=== PATIENT | female | born 1935 | race Caucasian/White ===

== ENCOUNTER 2020-07-05 09:06 | Emergency (ER) | payer MEDICARE, SELFPAY ==
--- NOTE | ~2020-07-05 | XR_ITS ---
EXAMINATION: XR knee LT min 4V DATE: 07/05/2020 09:42 INDICATION: Left knee pain TECHNIQUE: Four views of the left knee were obtained. COMPARISON: None. FINDINGS: Alignment is normal. The bones are osteopenic which limits the sensitivity for fracture how ever none is seen. There is moderate tricompartment osteoarthritis. No joint effusion/synovitis. Joseph cified atherosclerosis is noted. IMPRESSION: 1. No acute osseous abnormality. Reviewed, dictated and finalized at location B.
[2020-07-05 09:20] VITALS: BP 132/66; PULSE 80; RESP 12; TEMP 36.6; O2SAT 100
--- NOTE | 2020-07-05 09:27 | ED.LOWEXIN ---
HPI - Extremity Injury (Lower) General Chief Complaint: Extremity Injury, Lower Stated Complaint: left knee injury Time Seen by Provider: 07/05/20 09:27 Source: patient, family and RN notes reviewed Mode of arrival: ambulatory Limitations: no limitations History of Present Illness HPI Narrative: 84-year-old female who presents to [facility] accompanied by daughter with complaints of fall last night with injury to her left knee.Patient is elderly and lives alone with family assistance. Patient states that she was putting her pajamas on and she fell onto her left knee with pain stated to the medial aspect of her knee. Patient states that her pain increases with ambulation and bending, no evidence of fluid noted to knee. Patient has long cardiac history with pacer/AICD, she denies any syncope or dizziness at time of fall, states that she just lost her balance. MD complaint: knee injury Onset (ago): day(s) (1) Injury: Left: knee Place: home Severity: moderate Severity scale (1-10): 5 Relieving factors: rest Exacerbating factors: weight bearing Context: fall Associated symptoms: able to partially bear weight Other symptoms: none Related Data Home Medications Medication Instructions Recorded Confirmed apixaban [Eliquis] mg 07/05/20 fenofibrate nanocrystallized mg PO 07/05/20 furosemide 07/05/20 hydralazine 07/05/20 insulin glargine [Lantus U-100 SUBCUT 07/05/20 Insulin] insulin lispro [Humalog U-100 07/05/20 Insulin] isosorbide mononitrate mg PO 07/05/20 isosorbide mononitrate mg PO 07/05/20 levothyroxine 07/05/20 pravastatin 07/05/20 spironolactone 07/05/20 Allergies Allergy/AdvReac Type Severity Reaction Status Date / Time Sulfa (Sulfonamide Allergy Mild Verified 02/28/17 08:51 Antibiotics) Review of Systems Review of Systems: Narrative: CONSTITUTIONAL: Denies fever, chills, or sweats. EYES: Denies visual changes, redness, or discharge. ENT: Denies rhinorrhea, congestion, sore throat, or otalgia. CARDIOVASCULAR: Denies chest pain, palpitations, or edema. RESPIRATORY: Denies cough or dyspnea. GASTROINTESTINAL: Denies abdominal pain, nausea, vomiting, or diarrhea. GENITOURINARY: Denies dysuria or hematuria. SKIN: Denies rash or itching. MUSCULOSKELETAL: Denies back pain,positive for left knee pain, or myalgia. NEUROLOGIC: Denies headache, numbness, or weakness. PSYCHIATRIC: Denies anxiety or depression. All systems reviewed & are unremarkable except as noted in HPI and below PMFSH Past Medical History Medical History (Updated 07/05/20 @ 10:15 by Tuyet Glaser NP) Afib CHF (congestive heart failure) Diabetes Histoplasmosis Hyperlipidemia Hypertension Hypothyroid Kidney disease, chronic, stage III (GFR 30-59 ml/min) Myocardial infarction Pneumonia Presence of combination internal cardiac defibrillator (ICD) and pacemaker Surgical History Surgical History (Updated 07/05/20 @ 10:15 by Tuyet Glaser NP) H/O dilation and curettage H/O: hysterectomy History of lung surgery Hx of appendectomy Family History Family History Sibling Diabetes mellitus Family history of cardiovascular disease Acute myocardial infarction, Onset Age: 71 Family history of malignant neoplasm of brain Family history of malignant neoplasm of breast in first degree relative Mother Family history of hypercholesterolemia Hypertension Family history of cardiovascular disease Father Hypertension Family history of cardiovascular disease Family history of malignant neoplasm Grandparent Hypertension Family history of cardiovascular disease Social History Social History (Updated 07/05/20 @ 10:00 by Tuyet Glaser NP) Smoking status: Never smoker Alcohol intake: never Substance use: never Living arrangements: alone Occupation/Education: retired Gender identity (if verbalized by the patient): Female Comments
== END 2020-07-05 10:20 | disposition home or self-care (01) ==
PROVIDERS: Emergency Provider Registered Nurse; PCP Family Medicine
DX: M25.562 Pain in left knee (principal); I48.91 Unspecified atrial fibrillation; I13.0 Hypertensive heart and chronic kidney disease with heart failure and stage 1 through stage 4 chronic kidney disease, or unspecified chronic kidney disease; E11.22 Type 2 diabetes mellitus with diabetic chronic kidney disease; N18.3 Chronic kidney disease, stage 3 (moderate); I50.9 Heart failure, unspecified; E78.5 Hyperlipidemia, unspecified; E03.9 Hypothyroidism, unspecified; I25.2 Old myocardial infarction; Z95.810 Presence of automatic (implantable) cardiac defibrillator
CPT/HCPCS: 73564; 99213; G0463

== ENCOUNTER 2022-08-02 12:36 | Emergency (ER) | payer MEDICARE, MEDICAID, SELFPAY ==
--- NOTE | ~2022-08-02 | XR_ITS ---
EXAMINATION: XR knee LT min 4V DATE: 08/02/2022 13:15 INDICATION: Left knee injury and swelling. TECHNIQUE: 4 views of left knee were obtained. COMPARISON: Left knee radiographs 07/05/2020 FINDINGS: Bone alignment is normal. No fracture. There is diffuse osteopenia. There is moderate osteo arthritis of medial compartment and mild osteoarthritis of lateral and patellofemoral compartments. T here is an enthesophyte at the proximal attachment of medial collateral ligament. There is a small kn ee joint effusion. IMPRESSION: 1. Moderate left knee osteoarthritis. 2. Small left knee joint effusion. Reviewed, dictated and finalized at location A.
--- NOTE | 2022-08-02 12:50 | ED.LOWEXIN ---
HPI - Extremity Injury (Lower) General Chief Complaint: Extremity Problem,Nontraumatic Stated Complaint: Left Knee Pain Time Seen by Provider: 08/02/22 13:14 Source: patient, family (daughter), RN notes reviewed and old records reviewed Mode of arrival: ambulatory Limitations: no limitations History of Present Illness HPI Narrative: 86-year-old female presents to the [facility] with complaints of left knee pain since Saturday. Daughter states that she was at the granddaughter's house in [place]. Got up in middle the night and bumped her knee they think on a wall. Small amount of bruising noted to the medial aspect. Had been given Tylenol. Daughter states that she was evaluated by her chiropractor for chronic back pain, sciatica. States that he did take a picture of the knee and did not see any abnormality. Related Data Home Medications Medication Instructions Recorded Confirmed apixaban 2.5 mg tablet (Eliquis) 2.5 mg PO DAILY 07/05/20 fenofibrate nanocrystallized 145 145 mg PO DAILY 07/05/20 mg tablet furosemide 40 mg tablet 40 mg PO DAILY 07/05/20 hydralazine 50 mg tablet 50 mg PO DAILY 07/05/20 insulin glargine 100 unit/mL 1 unit subcut DIRECTED 07/05/20 subcutaneous solution (Lantus U-100 Insulin) insulin lispro 100 unit/mL 1 unit subcut DIRECTED 07/05/20 subcutaneous solution (Humalog U-100 Insulin) levothyroxine 112 mcg tablet 112 mcg PO DAILY 07/05/20 pravastatin 40 mg tablet 40 mg PO DAILY 07/05/20 spironolactone 25 mg tablet 25 mg PO DAILY 07/05/20 Allergies Allergy/AdvReac Type Severity Reaction Status Date / Time Sulfa (Sulfonamide Allergy Mild Verified 02/28/17 08:51 Antibiotics) Review of Systems Review of Systems: All systems reviewed & are unremarkable except as noted in HPI and below Constitutional: Constitutional: Reports no additional constitutional complaints, Denies chills and Denies fever(s) Eyes: Eyes: Reports no additional eye complaints ENT: Reports system reviewed and no additional complaints, except as documented Cardiovascular: Cardiovascular: Reports no additional cardiovascular complaints Respiratory: Respiratory: Reports no additional respiratory complaints Gastrointestinal: Gastrointestinal: Reports no additional gastrointestinal complaints Musculoskeletal: Musculoskeletal: Reports as per HPI, Reports arthralgias (Medial left knee) and Denies joint swelling Integumentary/Breasts: Skin/Breast: Reports system reviewed and no additional complaints, except as docu Neurologic: Reports system reviewed and no additional complaints, except as documented Psychiatric: Psychiatric: Reports no additional psychiatric complaints Allergic/Immunologic: Allergic/Immunologic: Reports no additional allergic/immunologic complaints [facility] Past Medical History Medical History Afib CHF (congestive heart failure) Diabetes Histoplasmosis Hyperlipidemia Hypertension Hypothyroid Kidney disease, chronic, stage III (GFR 30-59 ml/min) Myocardial infarction Pneumonia Presence of combination internal cardiac defibrillator (ICD) and pacemaker Surgical History Surgical History H/O dilation and curettage H/O: hysterectomy History of lung surgery Hx of appendectomy Family History Family History Sibling Diabetes mellitus Family history of cardiovascular disease Acute myocardial infarction, Onset Age: 71 Family history of malignant neoplasm of brain Family history of malignant neoplasm of breast in first degree relative Mother Family history of hypercholesterolemia Hypertension Family history of cardiovascular disease Father Hypertension Family history of cardiovascular disease Family history of malignant neoplasm Grandparent Hypertension Family history of cardiovascular disease
[2022-08-02 12:54] VITALS: BP 95/75; PULSE 82; RESP 18; TEMP 36.1; O2SAT 100
== END 2022-08-02 13:25 | disposition home or self-care (01) ==
PROVIDERS: Emergency Provider Nurse Practitioner
DX: S80.02XA Contusion of left knee, initial encounter (principal); W22.09XA Striking against other stationary object, initial encounter; M17.12 Unilateral primary osteoarthritis, left knee; M25.462 Effusion, left knee; I48.91 Unspecified atrial fibrillation; E11.9 Type 2 diabetes mellitus without complications; Z79.4 Long term (current) use of insulin; E78.5 Hyperlipidemia, unspecified; E03.9 Hypothyroidism, unspecified; I25.2 Old myocardial infarction; I12.9 Hypertensive chronic kidney disease with stage 1 through stage 4 chronic kidney disease, or unspecified chronic kidney disease; N18.30 Chronic kidney disease, stage 3 unspecified; Z95.810 Presence of automatic (implantable) cardiac defibrillator
CPT/HCPCS: 73564; 99213; G0463

== ENCOUNTER 2022-09-10 16:15 | Emergency (ER) | payer MEDICARE, MEDICAID, SELFPAY ==
--- NOTE | ~2022-09-10 | XR_ITS ---
EXAMINATION: XR chest 2V DATE: 09/10/2022 18:58 INDICATION: Abdominal pain TECHNIQUE: AP and lateral views of the chest are obtained. COMPARISON: 03/01/2017 FINDINGS: Cardiomegaly is noted. There is mild atelectasis of the lung bases. A triple lead cardiac p acemaker of the left chest wall ends with leads in expected locations. No pleural effusion or pneumot horax. There is moderate thoracic spondylosis. IMPRESSION: 1. Cardiomegaly. Reviewed, dictated and finalized at location F. N PACKER IMPRESSION: 1. Cardiomegaly.
--- NOTE | ~2022-09-10 | CT_ITS ---
EXAMINATION: CT abdomen pelvis w con INDICATION: Abdominal pain, nausea and diarrhea TECHNIQUE: Computed tomographic images of the abdomen and pelvis were obtained after the administrati on of 100 cc of Omnipaque 350 intravenous contrast. The dose-length product (DLP) was 368.34 mGy-cm. Automated exposure control and iterative reconstruction technique were employed. COMPARISON: None available FINDINGS: There is mild atelectasis of the visualized lung bases. Cardiomegaly is noted. The liver is diffusely low in attenuation when compared with the spleen, consistent with hepatic steatosis. Punct ate calcifications in an otherwise normal spleen likely represent healed granulomatous disease. Stone s are present in the nondistended gallbladder. There is a small sliding hiatal hernia. There is a 12 mm cystic lesion in the body of the pancreas. There are bilateral adrenal masses which measure up to 1.2 cm on the left. 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 There is a 6 mm stone in the left renal pelvis which is mildly distended. No pathologically enlarged abdominal or pelvic lymp h nodes are identified. There is no free intraperitoneal gas or evidence of bowel obstruction. There is a right inguinal hernia containing fat. There is severe lumbar spondylosis. There is moderate oste oarthritis of the hips. IMPRESSION: 1. 6 mm stone in the left renal pelvis. 2. Cholelithiasis without additional findings of cholecystitis. 3. Cardiomegaly. 4. 12 mm cystic lesion in the body of the pancreas. The differential diagnosis includes pseudocyst, i ntraductal papillary mucinous neoplasm (IPMN), mucinous cystic neoplasm (MCN), and the less common se shelby cystadenoma and neuroendocrine tumor. Correlate for history of pancreatitis. Follow-up pancreas protocol CT or MRI in two years is recommended. Reviewed, dictated and finalized at location F. OARDING TEACHER IMPRESSION: 1. 6 mm stone in the left renal pelvis. 2. Cholelithiasis without additional findings of cholecystitis. 3. Cardiomegaly. 4. 12 mm cystic lesion in the body of the pancreas. The differential diagnosis includes pseudocyst, intraductal papillary mucinous neoplasm (IPMN), mucinous c ystic neoplasm (MCN), and the less common serous cystadenoma and neuroendocrine tumor. Correlate for history of pancreatitis. Follow-up pancreas protocol CT o r MRI in two years is recommended.
[2022-09-10 16:16] VITALS: BP 135/80; PULSE 78; RESP 18; TEMP 36.3; O2SAT 100
[2022-09-10 16:40] LABS: Basophils Absolute Auto 0.1 K/mm3 (0.0-0.1); Basophils Percent Auto 0.9 % (0.2-1.2); Eosinophils Absolute Auto 0.1 K/mm3 (0-0.3); Eosinophils Percent Auto 1.6 % (0-4.4); Hemoglobin 14.3 g/dL (12.0-15.0); Immature Granulocyte Absolute 0.03 K/mm3 (0.00-0.031); Immature Granulocyte Percent A 0.5 % (0-0.5); Lymphocytes Absolute Auto 1.67 K/mm3 (0.9-3.2); Lymphocytes Percent Auto 28.8 % (18.3-44.2); Mean Corpuscular HGB Conc 32.5 g/dl (32-36); Mean Corpuscular Hemoglobin 29.4 pg (26-34); Mean Corpuscular Volume 90.5 fl (80-100); Mean Platelet Volume 11.3 fl (7.4-10.4); Monocytes Absolute Auto 0.5 K/mm3 (0.1-0.6); Monocytes Percent Auto 8.6 % (2.6-8.5); Neutrophils Absolute Auto 3.5 K/mm3 (1.3-6.7); Neutrophils Percent Auto 59.6 % (45.5-73.1); Platelet Count Result 199 k/mm3 (150-375); Red Blood Count 4.86 M/mm3 (4.2-5.4); Red Cell Distribution Width 13.5 % (11.5-14.5); White Blood Count 5.8 K/mm3 (4.5-10.0)
[2022-09-10 16:54] LABS: Alanine Aminotransferase 16 U/L (6-35); Albumin Level 4.2 g/dL (3.5-5.1); Alkaline Phosphatase 54 U/L (38-126); Anion Gap 7 mmol/L (8-16); Aspartate Amino Transferase 23 U/L (14-36); Bilirubin,Total 0.7 mg/dL (0.2-1.3); Blood Urea Nitrogen 29 mg/dL (7-17); Carbon Dioxide 30 mmol/L (22-30); Chloride 99 mmol/L (98-107); Estimated CRCL calculation 24 ml/min; Estimated Glomerular Filt Rate 42; Glucose 223 mg/dL (65-110); Lipase 102 U/L (23-300); Potassium 4.3 mmol/L (3.4-5.0); Sodium 136 mmol/L (137-145)
--- NOTE | 2022-09-10 18:22 | ED.ABDPAIN ---
HPI - Abdominal Pain General Chief Complaint: Abdominal Pain Stated Complaint: abd pain Time Seen by Provider: 09/10/22 18:06 Source: patient Mode of arrival: ambulatory History of Present Illness HPI narrative: 86-year-old female with history of CHF, [place], renal failure presents today after seeing her primary care physician. Patient states she was at her chiropractor today for a visit when they instructed her that her pain was not in her normal area and that she needed to see her primary care physician. Patient did see her primary care physician today who instructed her to come into the ER. Patient arrives today with complaints of abdominal distention. Patient denies any pain unless palpation. Patient's daughter is at bedside who currently lives with her. Did note diarrhea over the last 2 days. Denies fever, body aches, chills. She does believe that the abdomen is more distended than normal. Patient denies any pain but on exam guarding and pain noted to right upper right lower and left lower quadrants. Patient's abdomen is distended. With fluid wave noted Related Data Home Medications Medication Instructions Recorded Confirmed apixaban 2.5 mg tablet (Eliquis) 2.5 mg PO DAILY 07/05/20 fenofibrate nanocrystallized 145 145 mg PO DAILY 07/05/20 mg tablet furosemide 40 mg tablet 40 mg PO DAILY 07/05/20 insulin glargine 100 unit/mL 1 unit subcut DIRECTED 07/05/20 subcutaneous solution (Lantus U-100 Insulin) insulin lispro 100 unit/mL 1 unit subcut DIRECTED 07/05/20 subcutaneous solution (Humalog U-100 Insulin) levothyroxine 112 mcg tablet 112 mcg PO DAILY 07/05/20 pravastatin 40 mg tablet 40 mg PO DAILY 07/05/20 spironolactone 25 mg tablet 25 mg PO DAILY 07/05/20 Allergies Allergy/AdvReac Type Severity Reaction Status Date / Time Sulfa (Sulfonamide Allergy Mild Unknown Verified 08/31/22 16:45 Antibiotics) Review of Systems Review of Systems: CONSTITUTIONAL: Denies fever, chills, or sweats. EYES: Denies visual changes, redness, or discharge. ENT: Denies rhinorrhea, congestion, sore throat, or otalgia. CARDIOVASCULAR: Denies chest pain, palpitations, or edema. RESPIRATORY: Denies cough or dyspnea. GASTROINTESTINAL: Diarrhea last 2 days none today, nausea, abdominal pain on palpation.Denies nausea. GENITOURINARY: Denies dysuria or hematuria. SKIN: Denies rash or itching. MUSCULOSKELETAL: Denies back pain, joint pain, or myalgia. [facility] Past Medical History Medical History Afib CHF (congestive heart failure) Diabetes Histoplasmosis Hyperlipidemia Hypertension Hypothyroid Kidney disease, chronic, stage III (GFR 30-59 ml/min) Myocardial infarction Pneumonia Presence of combination internal cardiac defibrillator (ICD) and pacemaker Surgical History Surgical History H/O dilation and curettage H/O: hysterectomy History of lung surgery Hx of appendectomy Family History Family History Sibling Diabetes mellitus Family history of cardiovascular disease Acute myocardial infarction, Onset Age: 71 Family history of malignant neoplasm of brain Family history of malignant neoplasm of breast in first degree relative Mother Family history of hypercholesterolemia Hypertension Family history of cardiovascular disease Father Hypertension Family history of cardiovascular disease Family history of malignant neoplasm Grandparent Hypertension Family history of cardiovascular disease Social History Social History Smoking status: Never smoker Alcohol intake: never Substance use: never Lack of Transportation: No Lack of Food: Never True Current Housing: I Have Housing Concerned About Future Housing: No Difficulty Paying Gas/Electric Bills: No Difficult
[2022-09-10 18:41] VITALS: O2SAT 99
[2022-09-10 18:51] LABS: Appearance Urine Clear (Clear); Bilirubin Urine Negative (Negative); Blood Urine Negative (Negative); Color Urine Yellow (Yellow); Glucose Urine UA Negative (Negative); Ketones Urine Negative (Negative); Leukocyte Esterase Ur Negative LEU/UL (Negative); Nitrate Urine Negative (Negative); Protein Urine Negative (Negative); Urobilinogen Urine 0.2 mg/dL (<2.0)
[2022-09-10 18:54] LABS: Add Urine Microscopic? NO
[2022-09-10 19:08] LABS: NT Pro B Type Natriuretic Pept 2860 pg/mL (5-100)
[2022-09-10 19:10] VITALS: O2SAT 99
[2022-09-10 19:11] VITALS: BP 132/110; O2SAT 100
[2022-09-10 19:20] VITALS: O2SAT 99
[2022-09-10 19:45] LABS: INR 1.4; Prothrombin Time 16.3 Seconds (11.1-14.7)
[2022-09-10 20:01] VITALS: BP 129/93; PULSE 85; RESP 16; O2SAT 99
== END 2022-09-10 21:03 | disposition home or self-care (01) ==
PROVIDERS: Emergency Medicine; Emergency Provider Nurse Practitioner Family; PCP Family Medicine
DX: I13.0 Hypertensive heart and chronic kidney disease with heart failure and stage 1 through stage 4 chronic kidney disease, or unspecified chronic kidney disease (principal); N18.30 Chronic kidney disease, stage 3 unspecified; N20.0 Calculus of kidney; I50.9 Heart failure, unspecified; I25.2 Old myocardial infarction; I48.91 Unspecified atrial fibrillation; E78.5 Hyperlipidemia, unspecified; E03.9 Hypothyroidism, unspecified; Z90.710 Acquired absence of both cervix and uterus; Z87.01 Personal history of pneumonia (recurrent); Z79.01 Long term (current) use of anticoagulants; Z79.4 Long term (current) use of insulin; I51.7 Cardiomegaly; K80.20 Calculus of gallbladder without cholecystitis without obstruction; K86.9 Disease of pancreas, unspecified
CPT/HCPCS: 36415; 71046; 74177; 80053; 81003; 83690; 83880; 85025; 85610; 99284; Q9967

== ENCOUNTER 2022-10-01 15:47 | Outpatient (CLI) | payer MEDICARE, MEDICAID, SELFPAY ==
--- NOTE | ~2022-10-01 | XR_ITS ---
XR abdomen/kub 1V DATE: 10/01/2022 16:20 INDICATION: Left kidney stone. Pain and swelling. TECHNIQUE: 3 supine views of the abdomen COMPARISON: 09/10/2022 CT abdomen pelvis FINDINGS: There is prominent gas and fecal material within the redundant colon. No pneumatosis or int raperitoneal free air or venous gas is detected. No visceromegaly is evident. AICD and pacemaker leads overlie the heart. Osteopenia. Degenerative changes of the thoracic and lumbar spine. IMPRESSION: Prominent amount of gas and fecal material within the colon Reviewed, dictated and finalized at Location A. Reviewed, dictated and finalized at location B. MAKER
== END 2022-10-01 15:48 | disposition home or self-care (01) ==
LOC: ANHIMG 15:51
PROVIDERS: PCP Family Medicine; Visit Provider Urology
DX: N20.0 Calculus of kidney (principal)
CPT/HCPCS: 74018

== ENCOUNTER 2022-10-11 00:30 | Day surgery (SDC) | payer MEDICARE, MEDICAID, SELFPAY ==
--- NOTE | 2022-10-04 12:24 | PC.NURSE ---
Report to the Outpatient Waiting Room, entrance under the green pavilion located off [facility], at time __0630 on date 10/11/22 . Planned Procedure Time: __829 . Time changes happen often and if your time is changed the preop area will call you the afternoon before. - You and your visitor will be asked to self-screen and do not enter if you have any COVID symptoms. - Only one visitor is requested with a max of two and NO children visitors are allowed at this time. - The patient visitor may be requested to leave or wait in car when not with patient due to distancing restrictions. - A mask is optional within the hospital. Patients may have clear liquids (water, carbonated beverages, clear teas, apple juice) until 3 hours prior to surgery with a maximum of 20 ounces. - No food from midnight until time of surgery - Infants may have breast milk until 4 hours before surgery, formula 6 hours prior to surgery. - Children will be allowed to drink immediately following surgery. If applicable, please bring a bottle or sippy cup to assist with drinking. Juice, water, soda, and popsicles are readily available. For infants on formula, please bring formula the day of surgery. Pacifiers are allowed. Take the following medications with a SIP of water the morning of surgery: ____LEVOTHYROXINE Medications to discontinue per physician DAUGHTER NATHAN STATES DOESN'T NEED TO HOLD ELIQUIS _PER DR LUIS. ALL VIT/SUPP 3 DAYS PRE OP Date to take last dose__10/07/22 Please no make-up, nail czech, hairspray, perfume, deodorant, or body powder the day of surgery. No jewelry (including any body piercings) or valuables the day of surgery, leave them at home. Please take a shower or bath the night before, or the morning of, surgery with an antibacterial soap. Wear comfortable, loose fitting clothing. Children are encouraged to wear pajamas. - Jewelry must be removed prior to entering the operating room. Rings and piercings that are not removed may be cut off. - The hospital will not accept responsibility for valuables. - Please leave all valuables, including medications, at home the day of surgery. If you are going home after surgery, a licensed coach tour driver must drive you home. - NO public transportation without another adult if you receive anesthesia. - We recommend that an adult stay with you for 24 hours following discharge. - We also recommend that you do not drive, make important decision, drink alcoholic beverages, or take any drugs that were not prescribed by your health care provider for at least 24 hours after your discharge time. For Pediatric surgeries, we recommend two adults accompany the child home. Follow any additional instructions given to you from your surgeon. If you or anyone in your household have experienced Covid symptoms in the past week, please notify your surgeon or the nurse liaison at the phone number below for possible testing. Telephone instructions given to ___PT'S DAUGHTER NATHAN and asked if any additional questions and then verbalized understanding. Patient advised to call surgeon office or pre surgery nurse liaison [phone] if any additional questions.
[2022-10-04 12:46] VITALS: BMI 22.8
[2022-10-11] VITALS (12 sets, daily range): BP systolic 147–182; BP diastolic 84–104; PULSE 79–83; RESP 13–20; TEMP 36.4–37.1; O2SAT 95–100
--- NOTE | ~2022-10-11 | XR_ITS ---
EXAMINATION: XR retrograde pyelo w/stent LT DATE: 10/11/2022 8:40 EDUCATION AND TRAINING COORDINATOR INDICATION: RETRO/STENT . TECHNIQUE: 5 fluoroscopic images of the left abdomen were obtained during retrograde pyelogram perfor med by the surgeon. I was not present in the operating room. Fluoroscopy exposure time was 131.5 seco nds. COMPARISON: None FINDINGS: Images demonstrate wire placement followed by stent deployment in the left ureter, with appropriate s tent positioning. There is moderate dilatation of the left renal collecting system.. IMPRESSION: Fluoroscopic documentation of left ureteral stent placement. Please refer to the operative note for c omplete procedural details . Reviewed, dictated and finalized at location [] ATION AND TRAINING COORDINATOR IMPRESSION: Fluoroscopic documentation of left ureteral stent placement. Please refer to th e operative note for complete procedural details .
--- NOTE | 2022-10-11 06:32 | WPDHPUPDATE1 ---
History and Physical Update Update Date/Time: 10/11/22 06:32 History and Physical has been reviewed, including an updated exam of the patient. There are NO changes in the patient's condition. Risks, benefits, and alternatives have been discussed and questions answered. Patient agrees to proceed with procedure.
--- NOTE | 2022-10-11 07:24 | ECG_ITS ---
Measurements Intervals [place] Rate: 81 P: TN: 0 QRS: -77 QRSD: 155 T: 40 QT: 426 QTc: 496 Interpretive Statements ELECTRONIC VENTRICULAR PACEMAKER PROBABLE UNDERLYING ATRIAL FIBRILLATION ABNORMAL RHYTHM ECG NO PREVIOUS ECG AVAILABLE FOR COMPARISON Electronically Signed On 10-11-2022 11:45:13 EMAIL ENGINEER by Iveth Razo M.D.
--- NOTE | 2022-10-11 08:06 | WPDANESEPPF ---
Anes - Initial Pre Proc Eval Procedure: Operation Date: 10/11/22 08:30 Proposed Procedures p Cystoscopy, Left Ureteroscopy with Holmium Laser Lithotripsy, Possible Left Retrograde Pyelogram, Possible Left Stone Extraction, Possible Left Stent Placement - Kahlil Ryan MD Date/Time: 10/11/22 08:06 Surgeon: Kahlil Ryan MD Pre Op Diagnosis: left renal kidney stone Patient Data Age: 86 Gender: F Height: 1.63 m Weight: 57.3 kg Last Vital Signs Temp 36.4 C L 10/11/22 06:59 Pulse 83 10/11/22 06:59 Resp 16 10/11/22 06:59 BP 147/84 H 10/11/22 06:59 Pulse Ox 97 10/11/22 06:59 O2 Del Method Room Air 10/11/22 06:59 Allergies Allergy/AdvReac Type Severity Reaction Status Date / Time Sulfa (Sulfonamide Allergy Mild Unknown Verified 10/11/22 06:50 Antibiotics) adhesive tape AdvReac Redness of Verified 10/11/22 06:50 Skin Home Medications Medication Instructions Recorded Confirmed Type apixaban 2.5 mg tablet (Eliquis) 2.5 mg PO DAILY 07/05/20 10/11/22 History fenofibrate nanocrystallized 145 145 mg PO DAILY 07/05/20 10/11/22 History mg tablet furosemide 40 mg tablet 40 mg PO DAILY 07/05/20 10/11/22 History insulin glargine 100 unit/mL 1 unit subcut DIRECTED 07/05/20 10/11/22 History subcutaneous solution (Lantus U-100 Insulin) insulin lispro 100 unit/mL 1 unit subcut DIRECTED 07/05/20 10/11/22 History subcutaneous solution (Humalog U-100 Insulin) levothyroxine 112 mcg tablet 112 mcg PO DAILY 07/05/20 10/11/22 History pravastatin 40 mg tablet 40 mg PO DAILY 07/05/20 10/11/22 History spironolactone 25 mg tablet 25 mg PO DAILY 07/05/20 10/11/22 History cholecalciferol (vitamin D3) 50 50 mcg PO DAILY 10/04/22 10/11/22 History mcg (2,000 unit) tablet cyanocobalamin (vitamin B-12) 1,000 mcg MONTHLY 10/04/22 10/11/22 History 1,000 mcg/mL injection syringe Patient hx anesthesia problems: none Family hx anesthesia problems: none Results Review: All pre-operative results and documents have been reviewed as part of the pre-operative evaluation. [facility] Past Medical History Medical History Afib CHF (congestive heart failure) Diabetes Histoplasmosis Hyperlipidemia Hypertension Hypothyroid Kidney disease, chronic, stage III (GFR 30-59 ml/min) Myocardial infarction Pneumonia Presence of combination internal cardiac defibrillator (ICD) and pacemaker Surgical History Surgical History H/O dilation and curettage H/O: hysterectomy History of lung surgery Hx of appendectomy Family History Family History Sibling Diabetes mellitus Family history of cardiovascular disease Acute myocardial infarction, Onset Age: 71 Family history of malignant neoplasm of brain Family history of malignant neoplasm of breast in first degree relative Mother Family history of hypercholesterolemia Hypertension Family history of cardiovascular disease Father Hypertension Family history of cardiovascular disease Family history of malignant neoplasm Grandparent Hypertension Family history of cardiovascular disease Social History Social History Smoking status: Never smoker Alcohol intake: never Substance use: never Lack of Transportation: No Lack of Food: Never True Current Housing: I Have Housing Concerned About Future Housing: No Difficulty Paying Gas/Electric Bills: No Difficulty Paying for Meds: No Currently Unemployed: No Education: Decline to Answer Difficulty w/ Childcare or Family Care: No Living arrangements: with family Gender identity (if verbalized by the patient): Female Spiritual care concerns: No Anes - Eval Final PreProcedure Day of Procedure 10/11/22 08:06 Patient francisco
[2022-10-11 08:14] LABS: Glucose Point of Care 210 mg/dl (65-105)
[2022-10-11] MEDS: LACTATED RINGERS 1,000 ML 30 ML IV CONT (08:17)
[2022-10-11] MEDS: ceFAZolin 2 GM/D5W 50 ML 2 GM/50 ML BAG IVPB (08:19)
--- NOTE | 2022-10-11 09:15 | P.OP_ITS ---
Procedure Note - Detailed Date of Procedure 10/11/22 Pre-op Diagnosis left renal kidney stone Post-op Diagnosis Same Procedure Performed Cystoscopy, left ureteroscopy with laser lithotripsy, stone extraction, retrograde pyelogram and stent placement Surgeon Kahlil Ryan MD Anesthesia General Description of Procedure patient is brought to the operative suite where she has prepped draped in routine sterile fashion while in dorsal lithotomy position after the uneventful induction of general LMA anesthetic. Cystoscopy is undertaken with a 19 F rigid cystoscope. Her bladder was endoscopically normal without foreign body or neoplasm. Mucosa is without hyperemia. She has a single orthotopic ureteral o rifice with clear efflux bilaterally. 0.035 in glidewire was advanced to the left renal pelvis. The distal ureter was dilated with an 8 F 10 F dilator in the 12 14 F ureteral access sheath this placed. Ureteroscopy was undertaken with a 7.5 F flexible ureteral scope. The large stone in her proximal ureter pushed back into the kidney with irrigation. Using a 273 micron holmium laser stone is fractured into tiny pieces using a hard stone mode. These pieces were too small to grasp with a basket. I did place a 4.8 F double-J ureteral stent after performing a retrograde pyelogram through the ureteral scope. Scopes wire was removed and patient was taken recovery room good condition. Estimated Blood Loss 0 Urine Output 0 Drains Yes Packing No Pathology None sent Complications No immediate complications
[2022-10-11 09:34] LABS: Glucose Point of Care 191 mg/dl (65-105)
[2022-10-11] MEDS: ONDANSETRON INJ 4 MG/2 ML VIAL IV PUSH (10:11)
[2022-10-11] MEDS: diphenhydrAMINE HCl INJ 50 MG/ML VIAL 12.5 MG IV PUSH (10:38)
== END 2022-10-11 12:45 | disposition home or self-care (01) ==
PROVIDERS: PCP Family Medicine; Visit Provider Urology
PROC: (CPT 52352; principal; 2022-10-11 08:30)
DX: N20.0 Calculus of kidney (principal); I48.91 Unspecified atrial fibrillation; I13.0 Hypertensive heart and chronic kidney disease with heart failure and stage 1 through stage 4 chronic kidney disease, or unspecified chronic kidney disease; I50.9 Heart failure, unspecified; N18.30 Chronic kidney disease, stage 3 unspecified; I25.2 Old myocardial infarction; E11.22 Type 2 diabetes mellitus with diabetic chronic kidney disease; E78.5 Hyperlipidemia, unspecified; E03.9 Hypothyroidism, unspecified; Z95.810 Presence of automatic (implantable) cardiac defibrillator; Z79.4 Long term (current) use of insulin; Z79.01 Long term (current) use of anticoagulants
CPT/HCPCS: 52356; 74420; 82948; 93005; A9270; C1769; C1894; C2617; J0690; J1200; J2405; J2704; J3010; J7120

== ENCOUNTER 2023-03-31 13:33 | Emergency (ER) | payer MEDICARE, MEDICAID, SELFPAY ==
[2023-03-31] VITALS (29 sets, daily range): BP systolic 108–125; BP diastolic 67–89; PULSE 69–89; RESP 13–21; TEMP 36.3–36.4; O2SAT 94–100
--- NOTE | ~2023-03-31 | CT_ITS ---
CT head without contrast Indication: Altered mental status Technique: Serial scans were obtained through the brain without the administration of contrast. Dose reduction technique was used on this scan by utilizing automated exposure control and iterative recon struction technique. The dose-length product (DLP) was 681.00 mGy-cm. Findings: There is no evidence of intracranial hemorrhage, mass lesion, or acute infarct. The ventri cles and subarachnoid spaces are dilated, consistent with mild to moderate atrophy. Low attenuation regions are seen within the periventricular white matter bilaterally, likely representing changes fro m chronic microvascular ischemic disease. There is no evidence of edema, mass effect or midline shif t. The visualized paranasal sinuses and mastoid air cells are clear. Impression: No intracranial hemorrhage, mass, or acute infarct. Atrophy and chronic white matter changes, as above. Reviewed, dictated and finalized at location M. Impression: No intracranial hemorrhage, mass, or acute infarct. Atrophy and chronic white matter changes, as above.
--- NOTE | ~2023-03-31 | CT_ITS ---
Non-contrast CT scan of the Abdomen and Pelvis Clinical indication: Abdominal pain Technique: 2.5 mm axial scans were obtained through the abdomen and pelvis without intravenous or or al contrast. Dose reduction technique was used on this scan by utilizing automated exposure control a nd iterative reconstruction technique. The dose-length product (DLP) was 273.40 mGy-cm. COMPARISON: 09/10/2022 Findings: Images through the lung bases reveal moderate right pleural effusion with right basilar at electasis. Minimal left pleural effusion present.. Nonobstructing left renal stones measuring up to 6 mm. No right nephrolithiasis. No hydronephrosis or ureteral stones.. The liver, pancreas, and right adrenal gland appear normal. Numerous small layering gallstones and/or gallbladder sludge are present. Calcified splenic granulomas are present. Probable left adrenal nodu le, similar to prior exam. There are atherosclerotic calcifications of the aorta. There is no evidence of bowel obstruction. There is marked stool distention of the rectum, compatible with fecal impaction. Probable mild stercoral proctitis. There are multiple radiodense ovoid structu res within the stool in the distended rectum, which could reflect pills or other ingested foreign bod ies. Images through the pelvis were performed. There is no evidence of ascites or lymphadenopathy. Urinary bladder unremarkable. Impression: Fecal impaction and stercoral proctitis. Multiple radiodense ovoid structures in the stool within the rectum, which could reflect pills or oth er ingested material/foreign bodies. Correlate clinically. Cholelithiasis and/or gallbladder sludge. Left nephrolithiasis, nonobstructing. Moderate right pleural effusion and minimal left pleural effusion, with right basilar atelectasis. Reviewed, dictated and finalized at [facility]. Impression: Fecal impaction and stercoral proctitis. Multiple radiodense ovoid structures in the stool within the rectum, which coul d reflect pills or other ingested material/foreign bodies. Correlate clinically . Cholelithiasis and/or gallbladder sludge. Left nephrolithiasis, nonobstructing. Moderate right pleural effusion and minimal left pleural effusion, with right b asilar atelectasis.
--- NOTE | ~2023-03-31 | XR_ITS ---
Portable chest x-ray Comparison: 09/10/2022 Clinical History: Epigastric pain Findings: Small right pleural effusion is present. Left lung clear. Cardiomediastinal silhouette is stable, with pacemaker device. Bones and soft tissues are unremarkable. Impression: Small right pleural effusion. Pacemaker device. Reviewed, dictated and finalized at [facility]. Impression: Small right pleural effusion. Pacemaker device.
[2023-03-31 13:58] LABS: Glucose Point of Care 138 mg/dl (65-105)
--- NOTE | 2023-03-31 13:58 | ECG_ITS ---
Measurements Intervals [place] Rate: 80 P: SC: 0 QRS: -84 QRSD: 149 T: 17 QT: 441 QTc: 509 Interpretive Statements SINUS RHYTHM WITH ELECTRONIC VENTRICULAR PACEMAKER ATYPICAL ECG COMPARED TO ECG 10/11/2022 07:36:06 NO SIGNIFICANT CHANGES Electronically Signed On 04-01-2023 9:29:41 CDT by Dov Rivera M.D.
--- NOTE | 2023-03-31 14:00 | ED.GENADULT ---
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 She states patient has dementia she has been taking some fluids but has only been eating a little bit of yogurt over the last 8 days. She has not walked since being at home she has only been able to stand and turn. Daughter called the EMS when she tried to stand her up and she got weak and slumped over and the daughter could not get her blood pressure. EMS got a blood pressure 108/67. Patient complains of epigastric pain. Related Data Home Medications Medication Instructions Recorded Confirmed apixaban 2.5 mg tablet (Eliquis) 2.5 mg PO DAILY 07/05/20 03/31/23 fenofibrate nanocrystallized 145 145 mg PO DAILY 07/05/20 03/31/23 mg tablet furosemide 40 mg tablet 40 mg PO BID 07/05/20 03/31/23 insulin glargine 100 unit/mL 5 unit subcut DIRECTED 07/05/20 03/31/23 subcutaneous solution (Lantus U-100 Insulin) insulin lispro 100 unit/mL 50 unit subcut TIDWMEAL 07/05/20 03/31/23 subcutaneous solution (Humalog U-100 Insulin) pravastatin 40 mg tablet 40 mg PO DAILY 07/05/20 03/31/23 spironolactone 25 mg tablet 25 mg PO DAILY 07/05/20 03/31/23 cholecalciferol (vitamin D3) 50 50 mcg PO DAILY 10/04/22 03/31/23 mcg (2,000 unit) tablet cyanocobalamin (vitamin B-12) 1,000 mcg MONTHLY 10/04/22 03/31/23 1,000 mcg/mL injection syringe levothyroxine 100 mcg tablet 100 mcg PO QAM 01/25/23 03/31/23 omeprazole 20 mg capsule,delayed 20 mg PO DAILY 03/31/23 03/31/23 release Allergies Allergy/AdvReac Type Severity Reaction Status Date / Time Sulfa (Sulfonamide Allergy Mild Unknown Verified 03/31/23 14:00 Antibiotics) adhesive tape AdvReac Redness of Verified 03/31/23 14:01 Skin Review of Systems Constitutional: Constitutional: Denies chills, Reports fatigue, Denies fever(s) and Reports weakness Eyes: Eyes: Denies change in vision ENT: Reports dizziness, Denies epistaxis and Reports nasal congestion Cardiovascular: Cardiovascular: Reports chest pain Comments: Bruising the chest started yesterday or the day before per caregiver Respiratory: Respiratory: Reports cough and Denies dyspnea Gastrointestinal: Gastrointestinal: Reports abdominal pain, Denies constipation, Denies diarrhea and Denies vomiting Comments: decreased p.o. intake she is only taking yogurt and juice since being home over the last a day Genitourinary: Genitourinary: Denies hematuria and Reports urinary incontinence Musculoskeletal: Musculoskeletal: Denies muscle cramps Comments: sacral decubitus Integumentary/Breasts: Comments: breast or bruise Neurologic: Reports confusion, Reports dizziness and Reports syncope PMFSH Past Medical History Medical History Afib CHF (congestive heart failure) Diabetes Histoplasmosis Hyperlipidemia Hypertension Hypothyroid Kidney disease, chronic, stage III (GFR 30-59 ml/min) Myocardial infarction Pneumonia Presence of combination internal cardiac defibrillator (ICD) and pacemaker Surgical History Surgical History H/O dilation and curettage H/O: hysterectomy History of lung surgery Hx of appendectomy Family History Family History Sibling Diabetes mellitus Family history of cardiovascular disease Acute myocard
[2023-03-31] MEDS: ONDANSETRON INJ 4 MG/2 ML VIAL IV PUSH (14:41)
[2023-03-31] MEDS: KCL 20MEQ/0.9% SOD CHL 1,000 ML 100 ML IV CONT (14:42)
[2023-03-31 15:20] LABS: Hemoglobin 12.7 g/dL (11.7-13.8); Mean Corpuscular HGB Conc 32.6 g/dL (32.0-36.0); Mean Corpuscular Volume 86.1 fL (78.0-102.0); Mean Platelet Volume 11.2 fl (9.2-11.8); Platelet Count Result 244 K/mm3 (150-420); Red Blood Count 4.53 M/mm3 (4.20-5.40); Red Cell Distribution Width 17.4 % (11.6-14.4); White Blood Count 8.7 K/mm3 (4.8-10.8)
[2023-03-31 15:30] LABS: Bilirubin Urine 1+ (Negative); Blood Urine 3+ (Negative); Glucose Urine UA Negative (Negative); Ketones Urine Trace (Negative); Leukocyte Esterase Ur 3+ LEU/UL (Negative); Nitrate Urine Negative (Negative); Protein Urine 2+ (Negative); Specific Grav Ur >= 1.030 (1.010-1.020)
[2023-03-31 15:34] LABS: INR 1.7; Partial Thromboplastin Time 38.7 SEC (23.90-30.70); Prothrombin Time 17.7 Seconds (9.50-12.10)
[2023-03-31 15:35] LABS: Add Urine Microscopic? YES; Appearance Urine Turbid (Clear); Color Urine Amber (Yellow)
[2023-03-31 15:37] LABS: Alanine Aminotransferase 34 U/L (14-59); Albumin Level 2.5 g/dL (3.4-5.0); Alkaline Phosphatase 115 U/L (46-116); Anion Gap 9 mmol/L (8-16); Aspartate Amino Transferase 56 U/L (15-37); Bilirubin,Total 1.2 mg/dL (0.00-1.00); Blood Urea Nitrogen 17 mg/dL (7-18); Carbon Dioxide 26 mmol/L (21-32); Chloride 97 mmol/L (98-108); Estimated Glomerular Filt Rate 53; Glucose 147 mg/dL (70-99); Lipase 19 U/L (16-77); Magnesium 1.7 mg/dL (1.8-2.4); NT Pro B Type Natriuretic Pept 4934 pg/mL (0-450); Occult Blood Negative (Negative); Osmolality Calculated 278 mOsm/kg (285-295); Potassium 4.2 mmol/L (3.5-5.1); Sodium 132 mmol/L (136-145); Troponin I 26.7 ng/L (0.00-60.4)
[2023-03-31 15:40] LABS: Lactic Acid Reflex 2.7 mmol/L (0.4-2.0)
[2023-03-31 16:07] LABS: Bacteria Urine 4+ /hpf; RBC Urine >100 /hpf (0-2); WBC Clumps Urine Present /hpf
[2023-03-31 16:08] LABS: Amorphous Sediment Urine Heavy; WBC Urine >100 /hpf (0-3)
[2023-03-31 16:35] LABS: Influenza A QL RT-PCR Negative (Negative); Influenza B QL RT-PCR Negative (Negative); RSV RNA, RT-PCR Negative (Negative); SARS-CoV-2 RNA PCR Positive (Negative)
[2023-03-31 18:06] LABS: Reflex Lactic Acid Yes or No Add Lactic
[2023-03-31 19:52] LABS: Lactic Acid 2.2 mmol/L (0.4-2.0)
--- NOTE | 2023-04-07 12:35 | PC.NURSE ---
Final blood culture report: no growth after 5 days, no further action needed.
== END 2023-03-31 21:51 | disposition short-term general hospital (02) ==
PROVIDERS: Emergency Provider Emergency Medicine
DX: E86.0 Dehydration (principal); N39.0 Urinary tract infection, site not specified; K56.41 Fecal impaction; K62.89 Other specified diseases of anus and rectum; I48.91 Unspecified atrial fibrillation; I13.0 Hypertensive heart and chronic kidney disease with heart failure and stage 1 through stage 4 chronic kidney disease, or unspecified chronic kidney disease; I50.9 Heart failure, unspecified; N18.30 Chronic kidney disease, stage 3 unspecified; E11.22 Type 2 diabetes mellitus with diabetic chronic kidney disease; E78.5 Hyperlipidemia, unspecified; E03.9 Hypothyroidism, unspecified; I25.2 Old myocardial infarction; Z79.4 Long term (current) use of insulin; Z20.822 Contact with and (suspected) exposure to COVID-19
CPT/HCPCS: 36415; 70450; 71045; 74176; 80053; 81001; 82272; 82948; 83605; 83690; 83735; 83880; 84484; 85027; 85610; 85730; 87040; 87077; 87086; 87088; 87186; 87637; 93005; 96365; 96366; 96368; 96375; 99285; J0696; J2405; J3480

== ENCOUNTER 2023-03-31 22:44 | Inpatient (IN) | payer MEDICARE, MEDICAID, SELFPAY ==
--- NOTE | ~2023-03-31 | XR_ITS ---
Portable chest x-ray Comparison: 03/31/2023 Clinical History: Shortness of breath Findings: Small right pleural effusion is present. There is minimal haziness in the right lung as we ll. Left lung clear. Cardiomediastinal silhouette is stable, with pacemaker device. Bones and soft t issues are unremarkable. Impression: Small right pleural effusion with probable minimal right lung pulmonary edema or atelectatic change. Correlate clinically for pneumonia. Reviewed, dictated and finalized at location . Impression: Small right pleural effusion with probable minimal right lung pulmonary edema o r atelectatic change. Correlate clinically for pneumonia.
[2023-03-31 22:37] VITALS: BMI 17.6
--- NOTE | 2023-03-31 22:48 | ADMGEN ---
This patient, Selma Tovar, was admitted to IMU Room 231-01. Patient/family oriented to hospital policies and general routines including ID bracelet, bed and alarms, visiting hours, pain management, procedures, bathroom and other care routines, personal items, smoking policy, room service/diet, and visiting hours. Information on how to activate the Rapid Response Team has been discussed. Patient/Family are encouraged to report perceived risks to care and to ask questions if they do not understand what they are told or what they should do.
[2023-03-31 22:55] VITALS: BP 139/63; PULSE 81; RESP 16; TEMP 36.5; O2SAT 94
[2023-03-31 22:56] VITALS: BMI 17.6
--- NOTE | 2023-03-31 23:38 | PM.IMHP ---
H&P: HPI History of Present Illness Date/Time: 03/31/23 23:38 Chief Complaint: Generalized weakness Narrative: This is an 87-year-old female with past medical history significant for insulin-dependent diabetes mellitus, GERD, dyslipidemia, atrial fibrillation, congestive heart failure, chronic kidney disease, AICD. Patient with recent hip fracture status post replacement, with protracted post up course, paralytic ileus, prolonged hospitalization at [facility] 20 days, discharged to rehabilitation had a brief stay at [facility] and currently living with daughter. Was brought to outside facility emergency room [facility] for evaluation due to generalized weakness patient is only able to stand and turn has not been able to walk very debilitated, and weight loss. Preliminary workup was significant for elevated D-dimer, elevated troponin, urinalysis is numerous WBCs present, elevated lactic acid. A CT of abdomen and pelvis was reported as: Non-contrast CT scan of the Abdomen and Pelvis Clinical indication: Abdominal pain Technique:? 2.5 mm axial scans were obtained through the abdomen and pelvis without intravenous or oral contrast. Dose reduction technique was used on this scan by utilizing automated exposure control and iterative reconstruction technique. The dose-length product (DLP) was 273.40 mGy-cm. COMPARISON: 09/10/2022 Findings:? Images through the lung bases reveal moderate right pleural effusion with right basilar atelectasis. Minimal left pleural effusion present.. Nonobstructing left renal stones measuring up to 6 mm. No right nephrolithiasis. No hydronephrosis or ureteral stones.. The liver, pancreas, and right adrenal gland appear normal. Numerous small layering gallstones and/or gallbladder sludge are present. Calcified splenic granulomas are present. Probable left adrenal nodule, similar to prior exam. There are atherosclerotic calcifications of the aorta. ? There is no evidence of bowel obstruction. There is marked stool distention of the rectum, compatible with fecal impaction. Probable mild stercoral proctitis. There are multiple radiodense ovoid structures within the stool in the distended rectum, which could reflect pills or other ingested foreign bodies. Images through the pelvis were performed. There is no evidence of ascites or lymphadenopathy. Urinary bladder unremarkable. Impression: Fecal impaction and stercoral proctitis. Multiple radiodense ovoid structures in the stool within the rectum, which could reflect pills or other ingested material/foreign bodies. Correlate clinically. Cholelithiasis and/or gallbladder sludge. Left nephrolithiasis, nonobstructing. Moderate right pleural effusion and minimal left pleural effusion, with right basilar atelectasis. Head CT was reported as: CT head without contrast Indication: Altered mental status Technique: Serial scans were obtained through the brain without the administration of contrast. Dose reduction technique was used on this scan by utilizing automated exposure control and iterative reconstruction technique. The dose-length product (DLP) was 681.00 mGy-cm. Findings: There is no evidence of intracranial hemorrhage, mass lesion, or acute infarct.? The ventricles and subarachnoid spaces are dilated, consistent with mild to moderate atrophy.? Low attenuation regions are seen within the periventricular white matter bilaterally, likely representing changes from chronic microvascular ischemic disease. There is no evidence of edema,? mass effect or midline shift.? The visualized paranasal sinuses and mastoid air cells are clear. Impression: No intracranial hemorrhage, mass, or acute infarct. Atrophy and chronic white matter changes, as above. A chest x-ray was reported as: Portable chest x-ray Comparison: 09/10/2022 Clinical History: Epigastric pain Findings:? Small right pleural effusion is present. Left lung clear.? Cardiome
[2023-04-01] VITALS (14 sets, daily range): BP systolic 112–141; BP diastolic 53–75; PULSE 80–84; RESP 16–18; TEMP 36.4–36.8; O2SAT 95–97; BMI 17.6
[2023-04-01 01:11] LABS: Glucose Point of Care 127 mg/dl (65-105)
[2023-04-01] MEDS: INSULIN GLARGINE (*BKC) 100 UNITS/ML SUB-Q (01:35)
[2023-04-01] MEDS: SODIUM CHLORIDE 0.9% IV 1,000 ML 65 ML IV CONT ×2 (01:35→15:52)
[2023-04-01] MEDS: MIRTAZAPINE 15 MG TABLET PO ×2 (01:36→20:16)
[2023-04-01] MEDS: APIXABAN 2.5 MG TABLET PO ×3 (01:36→20:16)
[2023-04-01 02:08] LABS: Lactic Acid Reflex 1.9 mmol/L (0.7-2.0)
[2023-04-01 04:59] LABS: Basophils Percent Auto 0.5 % (0.2-1.2); Eosinophils Percent Auto 0.3 % (0-4.4); Hematocrit 35.7 % (37.0-47.0); Hemoglobin 11.8 g/dL (12.0-15.0); Immature Granulocyte Percent A 1.3 % (0-0.5); Lymphocytes Absolute Auto 2.39 K/mm3 (0.9-3.2); Lymphocytes Percent Auto 32.2 % (18.3-44.2); Mean Corpuscular HGB Conc 33.1 g/dl (32-36); Mean Corpuscular Hemoglobin 28.1 pg (26-34); Monocytes Absolute Auto 0.7 K/mm3 (0.1-0.6); Monocytes Percent Auto 9.6 % (2.6-8.5); Neutrophils Absolute Auto 4.2 K/mm3 (1.3-6.7); Neutrophils Percent Auto 56.1 % (45.5-73.1); Nucleated Red Blood Cells Absolute Auto 0.1 K/mm3 (0.0-0.012); Nucleated Red Blood Cells Perc 0.9 % (0.0-0.2); Platelet Count Result 214 k/mm3 (150-375); Red Cell Distribution Width 17.6 % (11.5-14.5); White Blood Count 7.4 K/mm3 (4.5-10.0)
[2023-04-01 05:12] LABS: Anion Gap 4 mmol/L (8-16); Blood Urea Nitrogen 19 mg/dL (7-17); Calcium 8.6 mg/dL (8.4-10.2); Carbon Dioxide 29 mmol/L (22-30); Chloride 98 mmol/L (98-107); Estimated CRCL calculation 28 ml/min; Estimated Glomerular Filt Rate 59; Glucose 114 mg/dL (65-110); Magnesium 1.9 mg/dL (1.6-2.3); Phosphorus 3.1 mg/dL (2.5-4.5); Sodium 131 mmol/L (137-145)
[2023-04-01] MEDS: LEVOTHYROXINE SODIUM 100 MCG TABLET PO (06:25)
--- NOTE | 2023-04-01 08:49 | PM.IMPN ---
Progress Note: A&P Assessment and Plan (1) Sepsis: Code(s): A41.9 - Sepsis, unspecified organism Status: Acute Assessment and Plan: Likely secondary to UTI, continue antibiotics, Rocephin started 03/31 (2) Fecal impaction: Code(s): K56.41 - Fecal impaction Status: Inactive Assessment and Plan: Stercoral proctitis noted on CT, continue aggressive bowel regimen, GI consult placed in the ER (3) Diabetes mellitus: Code(s): E11.9 - Type 2 diabetes mellitus without complications Status: Acute Assessment and Plan: Accu-Cheks AC and HS Continue insulin Check A1c (4) Kidney disease, chronic, stage III (GFR 30-59 ml/min): Code(s): N18.3 - Chronic kidney disease, stage 3 (moderate) Status: Acute Assessment and Plan: Continue to monitor daily BMP (5) Afib: Code(s): I48.91 - Unspecified atrial fibrillation Status: Acute Assessment and Plan: Rate controlled, anticoagulated on eliquis (6) Bilateral pleural effusion: Code(s): J90 - Pleural effusion, not elsewhere classified Status: Acute Assessment and Plan: Echo from 2020 showed an EF of 56% with no significant valvular abnormalities, no pulmonary hypertension, some diastolic dysfunction noted Lasix 40 mg IV daily Plan Disposition in a couple days, will discuss code status and hospice, would recommend DNR and interviewing hospice care, extremely poor prognosis. DVT prophylaxis with Eliquis GI prophylaxis not indicated Code status full code Subjective Date/time seen: 04/01/23 08:49 Interval history: 79-year-old female with history of diabetes, GERD, AFib and heart failure as well as kidney disease is presenting with generalized weakness after prolonged hospitalization at [facility] from a hip fracture repair status post replacement and currently being treated for sepsis likely secondary to UTI. No overnight events noted. No chest pain or shortness of breath. No nausea, vomiting or diarrhea. No fevers or chills. Patient very comfortable, no complaints. No po intake. Family in room, concerned that life expectancy is not long and asking about hospice. Review of Systems Review of Systems: 12 point review of systems was assessed and was negative except as noted in the HPI Exam Narrative: General: No acute distress, alert and oriented per baseline HEENT: Atraumatic, normocephalic, mucous membranes moist CV: Regular rate and rhythm, S1, S2 Lungs: Clear to auscultation bilaterally, no rales or crackles noted, no wheezes, good air entry Abdomen: Soft, nontender, nondistended Extremities: Normal to inspection Skin: No rashes noted, no lesions or wounds seen Psych: Euthymic, normal affect Objective Data Vital Signs Vital Signs: Vital Signs - 24 hr 03/31/23 22:55 04/01/23 00:00 04/01/23 00:00 Temperature 97.7 F Pulse Rate 81 80 Respiratory Rate 16 Blood Pressure 139/63 Pulse Oximetry 94 Oxygen Delivery Room Air 04/01/23 00:00 04/01/23 02:00 04/01/23 03:20 Temperature 97.6 F 97.6 F Pulse Rate 80 80 84 Respiratory Rate 16 16 Blood Pressure 127/72 119/58 L Pulse Oximetry 95 96 Oxygen Delivery 04/01/23 03:57 04/01/23 03:58 04/01/23 05:59 Temperature Pulse Rate 80 80 Respiratory Rate Blood Pressure Pulse Oximetry Oxygen Delivery Room Air 04/01/23 08:00 Temperature 98.2 F Pulse Rate 83 Respiratory Rate 18 Blood Pressure 113/72 Pulse Oximetry 97 Oxygen Delivery Intake/Output Intake/Output: Intake & Output 03/29/23 03/30/23 03/31/23 04/01/23 23:59 23:59 23:59 23:59 Intake Total 120 Balance 120 Meds/Results Medications: Active Medications Generic Name Dose Route Start Last Admin Trade Name Freq PRN Reason Stop Dose Admin Acetaminophen 650 mg 03/31/23 23:41 Acetaminophen 325 Mg Tablet PO Q4H PRN Mil
[2023-04-01] MEDS: CHOLECALCIFEROL 1,000 UNITS TABLET 2000 UNITS PO (10:44)
[2023-04-01] MEDS: COLLAGENASE OINT 30 GM TUBE 1 APPLIC TOPICAL (10:45)
[2023-04-01] MEDS: PANTOPRAZOLE 40 MG TABLET PO (10:45)
[2023-04-01] MEDS: SENNOSIDES 8.6 MG TABLET 17.2 MG PO (10:45)
[2023-04-01] MEDS: FUROSEMIDE INJ 40 MG/4 ML VIAL IV PUSH (10:45)
[2023-04-01] MEDS: FENOFIBRATE NANOCRYSTALLIZED 145 MG TABLET PO (10:45)
[2023-04-01 12:00] LABS: Glucose Point of Care 80 mg/dl (65-105)
[2023-04-01] MEDS: MAGNESIUM HYDROXIDE SUSP 30 ML UDC PO (15:52)
[2023-04-01 15:53] LABS: Glucose Point of Care 128 mg/dl (65-105)
--- NOTE | 2023-04-01 16:49 | WPDGICN ---
Assessment and Plan Assessment and plan (1) Fecal impaction in rectum: Code(s): K56.41 - Fecal impaction Status: Acute Assessment and Plan: she has failure to thrive and prolonged hospitalization, it seems that had overflow incontinence daughter prefers for now conservative treatment, will use enema as needed and laxative consider sigmoidoscopy if no response (2) Stercoral colitis: Code(s): K52.89 - Other specified noninfective gastroenteritis and colitis Status: Acute Assessment and Plan: from fecal impaction monitor (3) Sepsis: Code(s): A41.9 - Sepsis, unspecified organism Status: Acute (4) Bilateral pleural effusion: Code(s): J90 - Pleural effusion, not elsewhere classified Status: Acute (5) Urinary tract infection: Code(s): N39.0 - Urinary tract infection, site not specified Status: Inactive Assessment and Plan: on treatment GI Consult Note Consult date/time: 04/01/23 16:49 Reason for consult: fecal impaction HPI: Selma Tovar is a 87 year old female with past medical history of insulin-dependent diabetes mellitus, GERD, atrial fibrillation, congestive heart failure, chronic kidney disease, AICD.?History is obtained from records and daughter who is at bedside. She had recent kidney stone treated by urologist then hip fracture status post replacement then developed ileus with prolonged hospitalization at [facility] for almost 20 days, was told that probably had fecal overflow incontinence. Eventually discharged to rehabilitation and then went to stay with other daughter.?She was brought to emergency room [facility] because generalized weakness, ongoing weight loss and failure to thrive. No nausea or abdominal pain. Family member that patient has been having liquid stool daily. She had urinalysis with numerous WBCs present, elevated lactic acid.? A CT of abdomen and pelvis showed Fecal impaction and stercoral proctitis, Multiple radiodense ovoid structures in the stool within the rectum, which could reflect pills or other ingested material/foreign bodies. Cholelithiasis and/or gallbladder sludge. Moderate right pleural effusion and minimal left pleural effusion, with right basilar atelectasis. Review of Systems Constitutional: Constitutional: Reports weakness Eyes: Eyes: Denies photophobia ENT: Denies nasal congestion Cardiovascular: Cardiovascular: Denies chest pain Respiratory: Respiratory: Denies chest congestion Gastrointestinal: Gastrointestinal: Reports constipation Musculoskeletal: Musculoskeletal: Reports arthralgias Integumentary/Breasts: Skin/Breast: Denies rash Neurologic: Reports confusion Psychiatric: Psychiatric: Reports confusion [facility] Past Medical History Medical History (Updated 04/01/23 @ 16:56 by Jann Kang MD) Afib CHF (congestive heart failure) Diabetes Fecal impaction in rectum Histoplasmosis Hyperlipidemia Hypertension Hypothyroid Kidney disease, chronic, stage III (GFR 30-59 ml/min) Myocardial infarction Pneumonia Presence of combination internal cardiac defibrillator (ICD) and pacemaker Stercoral colitis Surgical History Surgical History H/O dilation and curettage H/O: hysterectomy History of lung surgery Hx of appendectomy Family History Family History Sibling Diabetes mellitus Family history of cardiovascular disease Acute myocardial infarction, Onset Age: 71 Family history of malignant neoplasm of brain Family history of malignant neoplasm of breast in first degree relative Mother Family history of hypercholesterolemia Hypertension Family history of cardiovascular disease Father Hypertension Family history of cardiovascular disease Family history of malignant neoplasm Grandparent Hypertension Family history of
[2023-04-01 19:54] LABS: Glucose Point of Care 103 mg/dl (65-105)
[2023-04-02] VITALS (10 sets, daily range): BP systolic 112–127; BP diastolic 61–79; PULSE 78–84; RESP 16–18; TEMP 36.1–36.5; O2SAT 92–97
[2023-04-02 05:08] LABS: Basophils Percent Auto 0.7 % (0.2-1.2); Eosinophils Absolute Auto 0.1 K/mm3 (0-0.3); Eosinophils Percent Auto 1.1 % (0-4.4); Hematocrit 34.7 % (37.0-47.0); Hemoglobin 11.6 g/dL (12.0-15.0); Immature Granulocyte Absolute 0.06 K/mm3 (0.00-0.031); Immature Granulocyte Percent A 1.1 % (0-0.5); Lymphocytes Absolute Auto 1.78 K/mm3 (0.9-3.2); Mean Corpuscular HGB Conc 33.4 g/dl (32-36); Mean Corpuscular Hemoglobin 28.6 pg (26-34); Mean Corpuscular Volume 85.5 fl (80-100); Mean Platelet Volume 10.4 fl (7.4-10.4); Monocytes Absolute Auto 0.6 K/mm3 (0.1-0.6); Neutrophils Percent Auto 54.1 % (45.5-73.1); Nucleated Red Blood Cells Absolute Auto 0.1 K/mm3 (0.0-0.012); Nucleated Red Blood Cells Perc 0.9 % (0.0-0.2); Platelet Count Result 215 k/mm3 (150-375); Red Blood Count 4.06 M/mm3 (4.2-5.4); Red Cell Distribution Width 17.6 % (11.5-14.5); White Blood Count 5.6 K/mm3 (4.5-10.0)
[2023-04-02 05:24] LABS: Hemoglobin A1C 5.6 % (<5.7)
[2023-04-02 05:28] LABS: Alanine Aminotransferase 29 U/L (6-35); Albumin Level 2.7 g/dL (3.5-5.1); Alkaline Phosphatase 105 U/L (38-126); Anion Gap 3 mmol/L (8-16); Aspartate Amino Transferase 51 U/L (14-36); Bilirubin,Total 1.5 mg/dL (0.2-1.3); Blood Urea Nitrogen 16 mg/dL (7-17); Calcium 8.3 mg/dL (8.4-10.2); Carbon Dioxide 30 mmol/L (22-30); Chloride 96 mmol/L (98-107); Estimated CRCL calculation 41 ml/min; Estimated Glomerular Filt Rate > 60; Glucose 74 mg/dL (65-110); Potassium 3.8 mmol/L (3.4-5.0); Sodium 129 mmol/L (137-145)
--- NOTE | 2023-04-02 07:17 | P.CDI_ITS ---
CDI Query Clarification Request BMI 17.7 Nutritional Diagnostic Statement Severe protein calorie malnutrition related to chronic end stage dementia as evidence by weight loss 26%/ 2 months and intakes <50% needs >1 month, poorly healing pressure injury. Please refer to the comprehensive nutrition assessment for further information. Please clarify severity of protein calorie malnutrition: * Mild * Moderate * Severe * Other/ unspecified <Dulce Vo RN - Last Filed: 04/02/23 07:22> Clarified Diagnosis Clarified Diagnosis: moderate <Vee Sandoval DO - Last Filed: 04/16/23 08:21>
--- NOTE | 2023-04-02 07:22 | P.CDI_ITS ---
CDI Query Clarification Request Documented history of CHF. Elevated BNP on 03/31/23 lab work. Patient receiving Lasix. Lasix listed as a home medication. Please specify type and acuity of heart failure if known. * Acute * Chronic * Acute on Chronic * Unknown * Systolic * Diastolic * Combined Systolic and Diastolic * Unknown <Dulce Vo RN - Last Filed: 04/02/23 07:24> Clarified Diagnosis Clarified Diagnosis: chronic diastolic heart failure <Vee Sandoval DO - Last Filed: 04/16/23 08:19>
--- NOTE | 2023-04-02 07:22 | WPDCDIQUERY2 ---
CDI Query Clarification Request Documented history of CHF. Elevated BNP on 03/31/23 lab work. Patient receiving Lasix. Lasix listed as a home medication. Please specify type and acuity of heart failure if known. Acute Chronic Acute on Chronic Unknown Systolic Diastolic Combined Systolic and Diastolic Unknown <Dulce Vo RN - Last Filed: 04/02/23 07:24> Clarified Diagnosis Clarified Diagnosis: chronic diastolic heart failure <Vee Sandoval DO - Last Filed: 04/16/23 08:19>
[2023-04-02 08:30] LABS: Glucose Point of Care 80 mg/dl (65-105)
[2023-04-02] MEDS: COLLAGENASE OINT 30 GM TUBE 1 APPLIC TOPICAL (10:19)
[2023-04-02] MEDS: FUROSEMIDE INJ 40 MG/4 ML VIAL IV PUSH (10:19)
[2023-04-02] MEDS: APIXABAN 2.5 MG TABLET PO ×2 (10:19→21:01)
[2023-04-02] MEDS: polyethylene glycoL 3350 17 GM POWD.PACK PO (10:19)
[2023-04-02] MEDS: SENNOSIDES 8.6 MG TABLET 17.2 MG PO (10:20)
[2023-04-02] MEDS: CHOLECALCIFEROL 1,000 UNITS TABLET 2000 UNITS PO (10:42)
[2023-04-02] MEDS: FENOFIBRATE NANOCRYSTALLIZED 145 MG TABLET PO (10:43)
[2023-04-02] MEDS: PANTOPRAZOLE 40 MG TABLET PO (10:43)
--- NOTE | 2023-04-02 11:20 | PM.IMPN ---
Progress Note: A&P Assessment and Plan (1) Sepsis: Code(s): A41.9 - Sepsis, unspecified organism Status: Acute Assessment and Plan: Likely secondary to UTI, continue antibiotics, Rocephin started 03/31, end date 04/05 (2) Fecal impaction: Code(s): K56.41 - Fecal impaction Status: Inactive Assessment and Plan: Stercoral proctitis noted on CT, continue aggressive bowel regimen Appreciate GI consult, recommend conservative management, sigmoidoscopy only as last resort (3) Diabetes mellitus: Code(s): E11.9 - Type 2 diabetes mellitus without complications Status: Acute Assessment and Plan: A1c 5.6, will discontinue accuchecks and insulin as risk of hypoglycemia much higher than hyperglycemia at her age and comorbidity level (4) Kidney disease, chronic, stage III (GFR 30-59 ml/min): Code(s): N18.3 - Chronic kidney disease, stage 3 (moderate) Status: Acute Assessment and Plan: Continue to monitor daily BMP (5) Afib: Code(s): I48.91 - Unspecified atrial fibrillation Status: Acute Assessment and Plan: Rate controlled, anticoagulated on eliquis (6) Bilateral pleural effusion: Code(s): J90 - Pleural effusion, not elsewhere classified Status: Acute Assessment and Plan: Echo from 2020 showed an EF of 56% with no significant valvular abnormalities, no pulmonary hypertension, some diastolic dysfunction noted Repeat CXR ordered 04/03 (7) Hyponatremia: Code(s): E87.1 - Hypo-osmolality and hyponatremia Status: Acute Assessment and Plan: Mild, asymptomatic, monitor on po intake Plan Disposition in a couple days, will discuss code status and hospice, would recommend DNR and hospice care, extremely poor prognosis. DVT prophylaxis with Eliquis GI prophylaxis not indicated Code status full code, family discussing DNR Subjective Date/time seen: 04/02/23 11:20 Interval history: 79-year-old female with history of diabetes, GERD, AFib and heart failure as well as kidney disease is presenting with generalized weakness after prolonged hospitalization at [facility] from a hip fracture repair status post replacement and currently being treated for sepsis likely secondary to UTI. No overnight events noted. No chest pain or shortness of breath. No nausea, vomiting or diarrhea. No fevers or chills. Patient very comfortable, no complaints. Family at bedside, discussed case extensively. Review of Systems Review of Systems: 12 point review of systems was assessed and was negative except as noted in the HPI Exam Narrative: General: No acute distress, alert and oriented per baseline HEENT: Atraumatic, normocephalic, mucous membranes moist CV: Regular rate and rhythm, S1, S2 Lungs: Clear to auscultation bilaterally, no rales or crackles noted, no wheezes, good air entry Abdomen: Soft, nontender, mildly distended Extremities: Normal to inspection Skin: No rashes noted, no lesions or wounds seen Psych: Euthymic, normal affect Objective Data Vital Signs Vital Signs: Vital Signs - 24 hr 04/01/23 12:00 04/01/23 12:00 04/01/23 12:00 Temperature 97.8 F Pulse Rate 81 80 Respiratory Rate 16 Blood Pressure 112/75 Pulse Oximetry 97 Oxygen Delivery Room Air 04/01/23 14:00 04/01/23 16:00 04/01/23 16:00 Temperature 97.8 F Pulse Rate 80 80 Respiratory Rate 18 Blood Pressure 113/53 L Pulse Oximetry 97 Oxygen Delivery Room Air 04/01/23 16:00 04/01/23 18:00 04/01/23 20:00 Temperature 97.6 F Pulse Rate 80 81 80 Respiratory Rate 16 Blood Pressure 141/65 H Pulse Oximetry 96 Oxygen Delivery 04/01/23 20:00 04/01/23 20:00 04/01/23 22:00 Temperature Pulse Rate 80 80 80 Respiratory Rate 16 Blood Pressure Pulse Oximetry 96 Oxygen Delivery Room Air 04/01/23 23:10 04/02/23 00:00 04/02/23 0
--- NOTE | 2023-04-02 17:15 | WPDGIPROGNO ---
Progress Note: A&P Assessment and Plan (1) Fecal impaction in rectum: Code(s): K56.41 - Fecal impaction Status: Acute Assessment and Plan: family preferred conservative treatment will add lactulose sigmoidoscopy as last resource (2) Stercoral colitis: Code(s): K52.89 - Other specified noninfective gastroenteritis and colitis Status: Acute (3) Bilateral pleural effusion: Code(s): J90 - Pleural effusion, not elsewhere classified Status: Acute (4) Sepsis: Code(s): A41.9 - Sepsis, unspecified organism Status: Acute Assessment and Plan: treated with abx, UTI + (5) Failure to thrive: Status: Acute Assessment and Plan: poor appetite, weight loss, etc Subjective Date/time seen: 04/02/23 17:15 Interval history: no major changes, still poor appetite, no BM after enema Review of Systems Review of Systems: All systems reviewed & are unremarkable except as noted in HPI and below Exam Const: General: comfortable and no acute distress Other: thin, awake and alert but confused HENMT: Face/Nose/Sinus: Normal nares present Eyes: General: appearance normal, both eyes and all related structures Neck: Neck: no JVD Resp: Auscultation: clear to auscultation bilaterally Cardio: Rate: regular rate Rhythm: regular rhythm GI: Inspection: non-distended GI Palp: Yes Soft to palpation, No Tenderness to palpation present (GI) and No Guarding due to palpation present (GI) Auscultation: normal bowel sounds Skin: General skin exam: normal color Neuro: Speech: normal speech Other: confused Extrem: General: normal to inspection Objective Data Vital Signs Vital Signs: Vital Signs - 24 hr 04/01/23 18:00 04/01/23 20:00 04/01/23 20:00 Temperature 97.6 F Pulse Rate 81 80 80 Respiratory Rate 16 Blood Pressure 141/65 H Pulse Oximetry 96 Oxygen Delivery 04/01/23 20:00 04/01/23 22:00 04/01/23 23:10 Temperature 97.6 F Pulse Rate 80 80 81 Respiratory Rate 16 16 Blood Pressure 131/68 Pulse Oximetry 96 95 Oxygen Delivery Room Air 04/02/23 00:00 04/02/23 00:00 04/02/23 02:00 Temperature Pulse Rate 80 80 84 Respiratory Rate 16 Blood Pressure Pulse Oximetry 95 Oxygen Delivery Room Air 04/02/23 04:00 04/02/23 04:00 04/02/23 04:00 Temperature 97.5 F L Pulse Rate 80 80 80 Respiratory Rate 16 16 Blood Pressure 116/68 Pulse Oximetry 96 96 Oxygen Delivery Room Air 04/02/23 06:00 04/02/23 08:00 04/02/23 08:00 Temperature 97.4 F L Pulse Rate 78 80 79 Respiratory Rate 18 Blood Pressure 125/63 Pulse Oximetry 92 Oxygen Delivery 04/02/23 10:00 04/02/23 08:00 04/02/23 12:00 Temperature 97.7 F Pulse Rate 80 80 82 Respiratory Rate 18 18 Blood Pressure 127/64 Pulse Oximetry 92 97 Oxygen Delivery Room Air 04/02/23 12:00 04/02/23 12:00 04/02/23 14:00 Temperature Pulse Rate 82 80 80 Respiratory Rate Blood Pressure Pulse Oximetry Oxygen Delivery Room Air 04/02/23 16:00 Temperature 97.6 F Pulse Rate 80 Respiratory Rate 16 Blood Pressure 118/61 Pulse Oximetry 96 Oxygen Delivery Intake/Output Intake/Output: Intake & Output 03/30/23 03/31/23 04/01/23 04/02/23 23:59 23:59 23:59 23:59 Intake Total 1940 490 Output Total 300 900 Balance 1640 -410 Meds/Results Medications: Active Medications Generic Name Dose Route Start Last Admin Trade Name Freq PRN Reason Stop Dose Admin Acetaminophen 650 mg 03/31/23 23:41 Acetaminophen 325 Mg Tablet PO Q4H PRN Mild Pain (1-3) or Fever Al Hydrox/Mg Hydrox/Simethicone 30 ml 03/31/23 23:41 Mag Hydrox/Al Hydrox/Simeth 30 Ml Udc PO QID PRN Dyspepsia Apixaban 2.5 mg 03/31/23 23:50 04/02/23 10:19 Apixaban 2.5 Mg Tablet PO 2.5 mg Q12HR ROB Administration Bisacodyl 10 mg 03/31/23 23:41 Bisacodyl 10 Mg Suppository RECTAL
[2023-04-02 20:18] LABS: Glucose Point of Care 91 mg/dl (65-105)
[2023-04-02] MEDS: MIRTAZAPINE 15 MG TABLET PO (21:01)
[2023-04-02] MEDS: MELATONIN 5 MG TABLET PO (21:01)
[2023-04-03] VITALS: PULSE 80
[2023-04-03 04:36] LABS: Basophils Absolute Auto 0.1 K/mm3 (0.0-0.1); Basophils Percent Auto 0.8 % (0.2-1.2); Eosinophils Percent Auto 0.7 % (0-4.4); Hematocrit 34.3 % (37.0-47.0); Hemoglobin 11.2 g/dL (12.0-15.0); Immature Granulocyte Absolute 0.05 K/mm3 (0.00-0.031); Immature Granulocyte Percent A 0.8 % (0-0.5); Lymphocytes Percent Auto 32.1 % (18.3-44.2); Mean Corpuscular HGB Conc 32.7 g/dl (32-36); Mean Corpuscular Hemoglobin 27.9 pg (26-34); Mean Corpuscular Volume 85.5 fl (80-100); Mean Platelet Volume 10.5 fl (7.4-10.4); Monocytes Absolute Auto 0.7 K/mm3 (0.1-0.6); Neutrophils Absolute Auto 3.2 K/mm3 (1.3-6.7); Neutrophils Percent Auto 54.6 % (45.5-73.1); Nucleated Red Blood Cells Absolute Auto 0.1 K/mm3 (0.0-0.012); Platelet Count Result 228 k/mm3 (150-375); Red Blood Count 4.01 M/mm3 (4.2-5.4); Red Cell Distribution Width 17.8 % (11.5-14.5); White Blood Count 5.9 K/mm3 (4.5-10.0)
[2023-04-03 04:52] LABS: Alanine Aminotransferase 27 U/L (6-35); Albumin Level 2.6 g/dL (3.5-5.1); Alkaline Phosphatase 104 U/L (38-126); Anion Gap 2 mmol/L (8-16); Aspartate Amino Transferase 60 U/L (14-36); Bilirubin,Total 1.5 mg/dL (0.2-1.3); Blood Urea Nitrogen 15 mg/dL (7-17); Calcium 8.3 mg/dL (8.4-10.2); Carbon Dioxide 33 mmol/L (22-30); Chloride 94 mmol/L (98-107); Estimated CRCL calculation 38 ml/min; Estimated Glomerular Filt Rate > 60; Glucose 82 mg/dL (65-110); Potassium 3.5 mmol/L (3.4-5.0); Sodium 129 mmol/L (137-145)
[2023-04-03 05:00] VITALS: BP 110/70; PULSE 88; RESP 20; TEMP 36.3; O2SAT 98
[2023-04-03 07:54] LABS: Glucose Point of Care 80 mg/dl (65-105)
[2023-04-03 07:57] VITALS: BP 109/68; PULSE 79; RESP 18; TEMP 36.4; O2SAT 92
[2023-04-03] MEDS: CHOLECALCIFEROL 1,000 UNITS TABLET 2000 UNITS PO (10:14)
[2023-04-03] MEDS: LACTULOSE 20 GM/30 ML UDC PO (10:14)
[2023-04-03] MEDS: SENNOSIDES 8.6 MG TABLET 17.2 MG PO (10:15)
[2023-04-03] MEDS: PANTOPRAZOLE 40 MG TABLET PO (10:15)
[2023-04-03] MEDS: APIXABAN 2.5 MG TABLET PO (10:15)
[2023-04-03] MEDS: polyethylene glycoL 3350 17 GM POWD.PACK PO (10:17)
--- NOTE | 2023-04-03 10:45 | PM.DS ---
DS: Admitting Diagnosis Discharge Date 04/03/23 Admitting Diagnosis colitis fecal impaction DS: Discharge Diagnosis Discharge Diagnosis (1) Failure to thrive: Status: Acute (2) Stercoral colitis: Code(s): K52.89 - Other specified noninfective gastroenteritis and colitis Status: Acute (3) Fecal impaction in rectum: Code(s): K56.41 - Fecal impaction Status: Acute DS: Summary Hospital Course Hospital Course: Assessment and Plan (1) Sepsis: ?Code(s): A41.9 - Sepsis, unspecified organism ?Status:?Acute ?Assessment and Plan: Likely secondary to UTI, continue antibiotics, Rocephin started 03/31, finished 3 day course. 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, continue aggressive bowel regimen Appreciate GI consult, recommend conservative management, sigmoidoscopy only as last resort (3) Diabetes mellitus: ?Code(s): E11.9 - Type 2 diabetes mellitus without complications ?Status:?Acute ?Assessment and Plan: A1c 5.6, will discontinue accuchecks and insulin as risk of hypoglycemia much higher than hyperglycemia at her age and comorbidity level (4) Kidney disease, chronic, stage III (GFR 30-59 ml/min): ?Code(s): N18.3 - Chronic kidney disease, stage 3 (moderate) ?Status:?Acute ?Assessment and Plan: Continue to monitor daily BMP (5) Afib: ?Code(s): I48.91 - Unspecified atrial fibrillation ?Status:?Acute ?Assessment and Plan: Rate controlled, anticoagulated on eliquis (6) Bilateral pleural effusion: ?Code(s): J90 - Pleural effusion, not elsewhere classified ?Status:?Acute ?Assessment and Plan: Echo from 2020 showed an EF of 56% with no significant valvular abnormalities, no pulmonary hypertension, some diastolic dysfunction noted Repeat CXR ordered 04/03 (7) Hyponatremia: ?Code(s): E87.1 - Hypo-osmolality and hyponatremia ?Status:?Acute ?Assessment and Plan: Mild, asymptomatic, monitor on po intake patient stable. being discharged home. has palliative care at home. Time Spent with Patient Time attestation: Total time spent providing and/or coordinating discharge services: DS: Data Data Completed and Pending Labs on day of discharge: Labs from last 24 hours 04/03/23 04/03/23 04/02/23 07:38 04:29 20:13 WBC 5.9 RBC 4.01 L Hgb 11.2 L Hct 34.3 L MCV 85.5 MCH 27.9 MCHC 32.7 RDW 17.8 H Plt Count 228 MPV 10.5 H Immature Gran % (Auto) 0.8 H Neut % (Auto) 54.6 Lymph % (Auto) 32.1 [place] % (Auto) 11.0 H Eos % (Auto) 0.7 Baso % (Auto) 0.8 Lymph # (Auto) 1.90 [place] # (Auto) 0.7 H Eos # (Auto) 0.0 Baso # (Auto) 0.1 Abs Immat Gran (auto) 0.05 H Absolute Neuts (auto) 3.2 Absolute Nucleated RBC 0.1 H Nucleated RBC % 1.0 H Sodium 129 L Potassium 3.5 Chloride 94 L Carbon Dioxide 33 H Anion Gap 2 L BUN 15 Creatinine 0.70 Estim Creat Clear Calc 38 Estimated GFR > 60 Glucose 82 POC Capillary Glucose 80 91 Calcium 8.3 L Total Bilirubin 1.5 H AST 60 H ALT 27 Alkaline Phosphatase 104 Total Protein 5.0 L Albumin 2.6 L Discharge Plan Discharge Consulting providers: Jann Kang Discharging Clinician: Morales Jernigan Anticipated Discharge Date/Time: 04/03/23 10:42 Patient Disposition: Home Health Service Activity: no preference Diet: regular and high fiber Discharge Instructions: resume home health services through [place] [facility]. [facility] can be contacted at [phone]. [facility] will contact you to arrange next visit. RN, please fax discharge instructions to [phone] once complete. Thank you. Patient Instructions: Antibiotic Form, Heart Failure (DC), Safe Use of Antico
--- NOTE | 2023-04-03 15:35 | WPDGIPROGNO ---
Progress Note: A&P Assessment and Plan (1) Fecal impaction in rectum: Code(s): K56.41 - Fecal impaction Status: Acute Assessment and Plan: family preferred conservative treatment continue bowel regiment she is being discharged today (2) Stercoral colitis: Code(s): K52.89 - Other specified noninfective gastroenteritis and colitis Status: Acute Assessment and Plan: on medical treatment no abd pain (3) Bilateral pleural effusion: Code(s): J90 - Pleural effusion, not elsewhere classified Status: Acute (4) Sepsis: Code(s): A41.9 - Sepsis, unspecified organism Status: Acute Assessment and Plan: treated with abx, UTI + (5) Failure to thrive: Status: Acute Assessment and Plan: poor appetite, weight loss, she is quite frail elderly Subjective Date/time seen: 04/03/23 15:35 Interval history: no major changes, still poor appetite small BM after lactulose and miralax Review of Systems Review of Systems: All systems reviewed & are unremarkable except as noted in HPI and below Exam Const: General: comfortable and no acute distress Other: thin, awake and alert but confused HENMT: Face/Nose/Sinus: Normal nares present Eyes: General: appearance normal, both eyes and all related structures Neck: Neck: no JVD Resp: Auscultation: clear to auscultation bilaterally Cardio: Rate: regular rate Rhythm: regular rhythm GI: Inspection: non-distended GI Palp: Yes Soft to palpation, No Tenderness to palpation present (GI) and No Guarding due to palpation present (GI) Auscultation: normal bowel sounds Skin: General skin exam: normal color Neuro: Speech: normal speech Other: confused Extrem: General: normal to inspection Objective Data Vital Signs Vital Signs: Vital Signs - 24 hr 04/02/23 16:00 04/02/23 20:00 04/02/23 20:00 Temperature 97.6 F 97.0 F L Pulse Rate 80 80 80 Respiratory Rate 16 16 16 Blood Pressure 118/61 112/79 Pulse Oximetry 96 96 96 Oxygen Delivery Room Air 04/03/23 00:00 04/03/23 05:00 04/03/23 07:57 Temperature 97.4 F L 97.5 F L Pulse Rate 80 88 79 Respiratory Rate 20 18 Blood Pressure 110/70 109/68 Pulse Oximetry 98 92 Oxygen Delivery Intake/Output Intake/Output: Intake & Output 03/31/23 04/01/23 04/02/23 04/03/23 23:59 23:59 23:59 23:59 Intake Total 1940 490 500 Output Total 300 900 550 Balance 8050 -661 -39 Meds/Results Medications: Active Medications Generic Name Dose Route Start Last Admin Trade Name Freq PRN Reason Stop Dose Admin Acetaminophen 650 mg 03/31/23 23:41 Acetaminophen 325 Mg Tablet PO Q4H PRN Mild Pain (1-3) or Fever Al Hydrox/Mg Hydrox/Simethicone 30 ml 03/31/23 23:41 Mag Hydrox/Al Hydrox/Simeth 30 Ml Udc PO QID PRN Dyspepsia Apixaban 2.5 mg 03/31/23 23:50 04/03/23 10:15 Apixaban 2.5 Mg Tablet PO 2.5 mg Q12HR ROB Administration Bisacodyl 10 mg 03/31/23 23:41 Bisacodyl 10 Mg Suppository RECTAL ONCE PRN Constipation Collagenase 1 applic 04/01/23 09:00 04/02/23 10:19 Collagenase Oint 30 Gm Tube TOPICAL 1 applic DAILY ROB Administration Ceftriaxone Sodium 1 gm in 50 mls @ 100 mls/hr 04/02/23 14:00 04/02/23 16:50 Rocephin 1 Gm/Ns 50 Ml IVPB Infused Q24H ROB Infusion Lactulose 20 gm 04/03/23 09:00 04/03/23 10:14 Lactulose 20 Gm/30 Ml Udc PO 20 gm QAM ROB Administration Levothyroxine Sodium 100 mcg 04/01/23 06:30 04/03/23 06:22 Levothyroxine Sodium 100 Mcg Tablet PO Not Given DAILY@0630 ROB Magnesium Hydroxide 30 ml 03/31/23 23:41 04/01/23 15:52 Magnesium Hydroxide Susp 30 Ml Udc PO 30 ml DAILY PRN Administration Constipation Melatonin 5 mg 04/02/23 21:00 04/02/23 21:01 Melatonin 5 Mg Tablet PO 5 mg HS ROB Administration Mirtazapine 15 mg 03/31/23 23:50 04/02/23 21:01 Mirtazapine 15 Mg Tablet
[2023-04-04 11:21] LABS: Glucose Point of Care 103 mg/dl (65-105)
--- NOTE | 2023-04-05 09:32 | PC.NURSE ---
Received positive urine culture that is growing Pseudomonas aeruginosa. Informed Dr. Jernigan of findings. Ordered Cipro 500 mg bid oral for 5 days. Called patient's daughter, Radha, with order. States agreement and understanding. Script called into [facility] in [place].
--- OUTSIDE RECORDS SUMMARY | 2023-07-30 11:45 | XMS_ITS | Continuity of Care Document ---
Author Name Unknown Organization Unknown Allergies, Adverse Reactions, Alerts Substance Reaction Status Sulfa drugs Active propoxyphene Active propoxyphene- actaminophen Activ e adhesive Active Medications Start Date End Date Medication Signa 20230406 lactulose 20 g o ral powder for reconstitution Administer 1 dose orally once a day 20230406 MiraLax - oral p owder for reconstitution Administer 17 gm(s) orally once a day 20230324 apixaban 2.5 mg oral tablet Take 1 tab(s) orally 2 times a day 20230324 collagenase topi zafar 250 units/g topical ointment Apply 1 application applied topically once a day; to coccyx wound 20230324 cyanocobalamin 1 000 mcg/mL injectable solution Inject 1000 microgram(s) intramuscularly once a month; around the first of each month 20230324 fenofibrate 145 mg oral tabl et Take 1 tab(s) orally once a day 20230324 levothyroxine 10 0 mcg (0.1 mg) oral capsule Take 1 cap(s) orally once a day 20230324 melatonin 1 mg oral tablet T palak 5 tab(s) orally once a day (at bedtime) 20230324 mirtazapine 15 m g oral tablet, disintegrating Take 1 tab(s) orally once a day (at bedtime) 20230324 omeprazole 20 mg oral delayed release capsule Take 1 cap(s) orally once a day 20230324 pravastatin 40 mg oral table t Take 1 tab(s) orally once a day 20230324 Senna Plus 50 mg -8.6 mg oral tablet Take 2 tab(s) orally 2 times a day Problems Type Code Description Effective Start Effective End Onset/Exacerbation Date Primary L89.152 Pressure ulcer o f sacral region` stage
== END 2023-04-03 16:45 | disposition home health service (06) | DRG 871 ==
PROVIDERS: Student in an Organized Health Care Education/Training Program; Admitting Provider Internal Medicine; Referring Provider Internal Medicine Gastroenterology; Visit Provider Hospitalist
DX: A41.9 Sepsis, unspecified organism (principal); U07.1 COVID-19; N39.0 Urinary tract infection, site not specified; J90 Pleural effusion, not elsewhere classified; E87.1 Hypo-osmolality and hyponatremia; Z68.1 Body mass index [BMI] 19.9 or less, adult; K56.41 Fecal impaction; E11.22 Type 2 diabetes mellitus with diabetic chronic kidney disease; N18.30 Chronic kidney disease, stage 3 unspecified; I48.91 Unspecified atrial fibrillation; Z51.5 Encounter for palliative care; R62.7 Adult failure to thrive; Z88.2 Allergy status to sulfonamides
CPT/HCPCS: 36415; 71045; 80048; 80053; 82948; 83036; 83605; 83735; 84100; 85025; A9270; J0696; J1815; J1940; J7030

== ENCOUNTER 2023-05-26 09:00 | Inpatient (IN) | payer MEDICARE, MEDICAID, SELFPAY ==
[2023-05-26] VITALS (17 sets, daily range): BP systolic 88–138; BP diastolic 53–84; PULSE 79–101; RESP 15–18; TEMP 36.2–36.6; O2SAT 91–100; BMI 16.2
--- NOTE | ~2023-05-26 | XR_ITS ---
XR chest 1V portable DATE: 05/26/2023 10:25 INDICATION: Shortness of breath and weakness. TECHNIQUE: Portable AP chest on 05/26/2023 at 1023 hours COMPARISON: 04/03/2020 portable AP chest at 0532 hours FINDINGS: Left triple lead transvenous pacemaker device with leads overlying right atrium, right vent ricle and coronary sinus. Cardiomegaly. Is aortic calcification and unfolding. Status post right thoracotomy. There is infiltrate and/atelectasis in the right mid and particularly lower lung zones with some righ t lung volume loss and rightward shift of heart and mediastinum. Mild pleural effusion is noted on th e right. The left lung is hyperinflated but clear. No left pleural effusion. No pneumothorax. Bilateral rotator cuff atrophy and glenohumeral osteoarthritis. Osteopenia. IMPRESSION: Right mid and lower lung infiltrate and/atelectasis and small right pleural effusion Sepsis right thoracotomy Cardiomegaly, aortic atherosclerosis Triple lead left pacemaker device Reviewed, dictated and finalized at location A.
--- NOTE | 2023-05-26 09:14 | ECG_ITS ---
Measurements Intervals [place] Rate: 80 P: [place]: 0 QRS: -78 QRSD: 144 T: 78 QT: 441 QTc: 509 Interpretive Statements ELECTRONIC VENTRICULAR PACEMAKER BASELINE ARTIFACT- I, II, III, AVR, AVL, AVF, V1-V6 NO FURTHER INTERPRETATION IS POSSIBLE ATYPICAL ECG COMPARED TO ECG 03/31/2023 14:02:43 NO SIGNIFICANT CHANGES Electronically Signed On 05-27-2023 0:21:26 CDT by Scooby Hernandez D.O.
--- NOTE | 2023-05-26 09:40 | ED.GENADULT ---
HPI - General Adult General Chief complaint: Weakness Stated complaint: possible dehydration Time Seen by Provider: 05/26/23 09:10 History of Present Illness HPI narrative: 87-year-old female presenting with generalized weakness. Per daughter at bedside, patient has been appearing generally weak and possibly dehydrated for the past day and a half. she states the patient has poor intake. he denies any recent illnesses or fevers. No reported trauma. Onset (ago): day(s) Related Data Home Medications Medication Instructions Recorded Confirmed apixaban 2.5 mg tablet (Eliquis) 2.5 mg PO BID 07/05/20 05/26/23 fenofibrate nanocrystallized 145 145 mg PO DAILY 07/05/20 05/26/23 mg tablet pravastatin 40 mg tablet 40 mg PO DAILY 07/05/20 05/26/23 cholecalciferol (vitamin D3) 50 50 mcg PO DAILY 10/04/22 05/26/23 mcg (2,000 unit) tablet levothyroxine 100 mcg tablet 100 mcg PO QAM 01/25/23 05/26/23 senna 2 tablet PO DAILY 03/31/23 05/26/23 Allergies Allergy/AdvReac Type Severity Reaction Status Date / Time Sulfa (Sulfonamide Allergy Mild Unknown Verified 05/26/23 09:31 Antibiotics) adhesive tape AdvReac Redness of Verified 05/26/23 09:31 Skin PMFSH Past Medical History Medical History (Updated 05/26/23 @ 12:04 by Jorge Byrd DO) Afib CHF (congestive heart failure) Diabetes Failure to thrive Fecal impaction in rectum Histoplasmosis Hyperlipidemia Hypertension Hypothyroid Kidney disease, chronic, stage III (GFR 30-59 ml/min) Myocardial infarction Pneumonia Presence of combination internal cardiac defibrillator (ICD) and pacemaker Stercoral colitis Surgical History Surgical History H/O dilation and curettage H/O: hysterectomy History of lung surgery Hx of appendectomy Family History Family History Sibling Diabetes mellitus Family history of cardiovascular disease Acute myocardial infarction, Onset Age: 71 Family history of malignant neoplasm of brain Family history of malignant neoplasm of breast in first degree relative Mother Family history of hypercholesterolemia Hypertension Family history of cardiovascular disease Father Hypertension Family history of cardiovascular disease Family history of malignant neoplasm Grandparent Hypertension Family history of cardiovascular disease Social History Social History Smoking status: Never smoker Alcohol intake: never Substance use: never Substance use type: does not use Lack of Transportation: No Lack of Food: Never True Current Housing: I Have Housing Concerned About Future Housing: No Difficulty Paying Gas/Electric Bills: No Difficulty Paying for Meds: No Currently Unemployed: No Education: Decline to Answer Difficulty w/ Childcare or Family Care: No Living arrangements: with family Occupation/Education: retired Gender identity (if verbalized by the patient): Female Spiritual care concerns: No Exam Const: General: no acute distress and alert Nutritional Appearance: underweight HENMT: Head: normal to inspection and normocephalic Ears: hearing grossly normal bilaterally and external ears normal Face/Nose/Sinus: Normal external nose present and Normal nares present Face and sinus: normal facial exam and face symmetric Eyes: General: appearance normal, both eyes and all related structures Alignment and Position: alignment normal Neck: Neck: normal visual inspection and full ROM Chest: Chest palpation & inspection: normal inspection of the chest and normal inspection of the chest Resp: Effort & Inspection: normal respiratory effort, normal respiratory pattern and not labored Cardio: Jugular venous distension: no JVD Rate: regular rate GI: Inspection: normal to inspection and no edema Back/Spine/Pelvis: Ce
[2023-05-26] MEDS: SODIUM CHLORIDE 0.9% IV 500 ML 999 ML IV CONT (10:09)
[2023-05-26 10:24] LABS: Basophils Absolute Auto 0.04 K/mm3 (0.00-0.10); Basophils Percent Auto 0.5 % (0.0-1.0); Hematocrit 48.2 % (35.0-42.0); Hemoglobin 15.4 g/dL (11.7-13.8); Immature Granulocyte Absolute 0.07 K/mm3 (0.00-0.00); Immature Granulocyte Percent A 0.8 % (0.0-0.0); Lymphocytes Absolute Auto 1.44 K/mm3 (1.10-4.50); Lymphocytes Percent Auto 16.3 % (18.0-42.0); Mean Corpuscular Volume 93.8 fL (78.0-102.0); Mean Platelet Volume 11.5 fl (9.2-11.8); Monocytes Absolute Auto 0.64 K/mm3 (0.10-0.90); Monocytes Percent Auto 7.2 % (2.0-11.0); Neutrophils Absolute Auto 6.7 K/mm3 (1.7-7.2); Neutrophils Percent Auto 75.2 % (50.0-70.0); Platelet Count Result 160 K/mm3 (150-420); Red Blood Count 5.14 M/mm3 (4.20-5.40); Red Cell Distribution Width 18.7 % (11.6-14.4); White Blood Count 8.9 K/mm3 (4.8-10.8)
[2023-05-26 10:33] LABS: Bilirubin Urine 2+ (Negative); Blood Urine 3+ (Negative); Glucose Urine UA Negative (Negative); Ketones Urine Negative (Negative); Leukocyte Esterase Ur Trace LEU/UL (Negative); Nitrate Urine Negative (Negative); Protein Urine Trace (Negative); Specific Grav Ur >= 1.030 (1.010-1.020); Urobilinogen Urine 0.2 mg/dL (0.2-1.0); pH Urine 5.5 (5.0-8.0)
[2023-05-26 10:43] LABS: Add Urine Microscopic? YES; Appearance Urine Turbid (Clear); Calcium Oxalate Crystals Urine Many /hpf; Color Urine Brown (Yellow); RBC Urine >75 /hpf (0-2); Squamous Epithelial Cell Urine Many /hpf (Few)
[2023-05-26 10:44] LABS: Amorphous Sediment Urine Heavy; Bacteria Urine 4+ /hpf
[2023-05-26 10:48] LABS: Alanine Aminotransferase 53 U/L (14-59); Albumin Level 2.1 g/dL (3.4-5.0); Alkaline Phosphatase 92 U/L (46-116); Anion Gap 12 mmol/L (8-16); Aspartate Amino Transferase 69 U/L (15-37); Bilirubin,Total 1.3 mg/dL (0.00-1.00); Blood Urea Nitrogen 30 mg/dL (7-18); Calcium 8.8 mg/dL (8.5-10.1); Carbon Dioxide 21 mmol/L (21-32); Chloride 112 mmol/L (98-108); Creatine Kinase 31 U/L (26-192); Estimated Glomerular Filt Rate 40; Glucose 178 mg/dL (70-99); NT Pro B Type Natriuretic Pept 6731 pg/mL (0-450); Osmolality Calculated 310 mOsm/kg (285-295); Potassium 4.9 mmol/L (3.5-5.1); Sodium 145 mmol/L (136-145); Thyroid Stimulating Hormone 0.41 uIU/mL (0.36-3.74); Total Protein 5.5 g/dL (6.4-8.2); Troponin I 56.8 ng/L (0.00-60.4)
[2023-05-26 10:51] LABS: Acetone Negative (Negative)
[2023-05-26] MEDS: SODIUM CHLORIDE 0.9% IV 500 ML 50 ML IV CONT (11:06)
[2023-05-26] MEDS: AZITHROMYCIN 500 MG/NS 250 ML 500 MG/250 ML BAG 250 MG IVPB (11:45)
--- NOTE | 2023-05-26 12:15 | ADMGEN ---
This patient, Selma Tovar, was admitted to 2nd Floor Room 209-1. Patient/family oriented to hospital policies and general routines including ID bracelet, bed and alarms, visiting hours, pain management, procedures, bathroom and other care routines, personal items, smoking policy, room service/diet, and visiting hours. Information on how to activate the Rapid Response Team has been discussed. Patient/Family are encouraged to report perceived risks to care and to ask questions if they do not understand what they are told or what they should do.
--- NOTE | 2023-05-26 14:57 | PM.IMHP ---
H&P: HPI History of Present Illness Date/Time: 05/26/23 1350 Chief Complaint: Altered mental status Narrative: Ms. Tovar is an 87-year-old cachectic, frail-appearing female who is brought to the emergency room by her daughter for altered mental status and possible dehydration. Patient is unable to give any type of history so all pertinent history is coming from patient's daughter who is the patient's power of civil attorney. Patient's daughter states that she noticed on Saturday night the patient was weak and was stating thinks that did not make any sense. Patient's daughter states that patient typically acts like this when she has had a urinary tract infection in the past and so patient's daughter called the patient's primary care provider and she was told to bring her mother to the emergency room. Patient's daughter states that her mother has not had any fever, cough, or shortness of breath but she is aware of. Patient's daughter states that patient has not been eating very well over the last 2 months. She states that she is able to get the patient to drink Ensure or [place] instant breakfast, but other than this the patient does not have significant intake. Patient's daughter states since the patient broke her femur she has been doing poorly. Upon evaluation emergency room patient was noted to have an elevation in her hemoglobin and hematocrit and an elevation in her BUN and creatinine and from previous testing that was performed on 04/03/2023. Patient also had a urinalysis performed that showed a urinary tract infection and a chest x-ray that showed a right lower lobe infiltrate. Patient was given azithromycin as well as ceftriaxone. Patient does have a known history of systolic congestive heart failure and has a Bi V ICD/ppm. Patient also has a known history of underlying atrial fibrillation. At this time patient's chest x-ray does not show any pulmonary vascular congestion. Patient's daughter states that patient is able to take all of her home medications with her Ensure or her [place] Instant breakfast. Review of Systems Review of Systems: Unable to obtain a full review of systems secondary to patient's altered mental status and underlying dementia. 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 Surgical History Surgical History H/O dilation and curettage H/O: hysterectomy History of lung surgery Hx of appendectomy Family History Family History Sibling Diabetes mellitus Family history of cardiovascular disease Acute myocardial infarction, Onset Age: 71 Family history of malignant neoplasm of brain Family history of malignant neoplasm of breast in first degree relative Mother Family history of hypercholesterolemia Hypertension Family history of cardiovascular disease Father Hypertension Family history of cardiovascular disease Family history of malignant neoplasm Grandparent Hypertension Family history of cardiovascular disease Social History Social History Smoking status: Never smoker Alcohol intake: never Substance use: never Substance use type: does not use Lack of Transportation: No Lack of Food: Never True Current Housing: I Have Housing Concerned About Future Housing: No Difficulty Paying Gas/Electric Bills: No Difficulty Paying for Meds: No Currently Unemployed: No Education: Associate Degree Difficulty w/ Childcare or Family C
--- NOTE | 2023-05-26 18:30 | PC.NURSE ---
Juan from [facility] here, 4 welsh single lumen 12cm Midline placed to right AC, tolerated well.
[2023-05-26] MEDS: APIXABAN 2.5 MG TABLET PO (19:23)
[2023-05-26] MEDS: LACTATED RINGERS 1,000 ML 75 ML IV CONT (21:06)
[2023-05-26] MEDS: PRAVASTATIN SODIUM 20 MG TABLET 40 MG PO (21:15)
[2023-05-26] MEDS: MIRTAZAPINE 15 MG TABLET PO (21:15)
--- NOTE | 2023-05-26 22:39 | PC.NURSE ---
Normal saline IV flush not given d/t LR running at 75mL/hr at this time.
[2023-05-27] VITALS: BP 100/54; PULSE 81; RESP 17; TEMP 36.8; O2SAT 100
[2023-05-27 05:35] LABS: Basophils Absolute Auto 0.04 K/mm3 (0.00-0.10); Basophils Percent Auto 0.6 % (0.0-1.0); Eosinophils Absolute Auto 0.01 K/mm3 (0.02-0.50); Eosinophils Percent Auto 0.2 % (1.0-6.0); Hematocrit 40.2 % (35.0-42.0); Hemoglobin 13.1 g/dL (11.7-13.8); Immature Granulocyte Absolute 0.03 K/mm3 (0.00-0.00); Immature Granulocyte Percent A 0.5 % (0.0-0.0); Lymphocytes Percent Auto 17.8 % (18.0-42.0); Mean Corpuscular HGB Conc 32.6 g/dL (32.0-36.0); Mean Corpuscular Volume 88.9 fL (78.0-102.0); Mean Platelet Volume 11.5 fl (9.2-11.8); Monocytes Absolute Auto 0.42 K/mm3 (0.10-0.90); Monocytes Percent Auto 6.8 % (2.0-11.0); Neutrophils Absolute Auto 4.6 K/mm3 (1.7-7.2); Neutrophils Percent Auto 74.1 % (50.0-70.0); Platelet Count Result 156 K/mm3 (150-420); Red Blood Count 4.52 M/mm3 (4.20-5.40); Red Cell Distribution Width 18.1 % (11.6-14.4); White Blood Count 6.2 K/mm3 (4.8-10.8)
[2023-05-27 05:43] LABS: Anion Gap 7 mmol/L (8-16); Blood Urea Nitrogen 29 mg/dL (7-18); Calcium 8.7 mg/dL (8.5-10.1); Carbon Dioxide 27 mmol/L (21-32); Chloride 114 mmol/L (98-108); Estimated CRCL calculation 19 ml/min; Estimated Glomerular Filt Rate 40; Glucose 147 mg/dL (70-99); Magnesium 1.9 mg/dL (1.8-2.4); Osmolality Calculated 314 mOsm/kg (285-295); Potassium 3.4 mmol/L (3.5-5.1); Sodium 148 mmol/L (136-145)
[2023-05-27] MEDS: LEVOTHYROXINE SODIUM 100 MCG TABLET PO (07:30)
[2023-05-27 07:44] VITALS: BP 139/88; PULSE 79; RESP 18; TEMP 36.8; O2SAT 100
[2023-05-27] MEDS: polyethylene glycoL 3350 17 GM POWD.PACK PO (09:04)
[2023-05-27] MEDS: FENOFIBRATE NANOCRYSTALLIZED 145 MG TABLET PO (09:05)
[2023-05-27] MEDS: CHOLECALCIFEROL 1,000 UNITS TABLET 2000 UNITS PO (09:05)
[2023-05-27] MEDS: SENNOSIDES 8.6 MG TABLET 17.2 MG PO (09:06)
[2023-05-27] MEDS: APIXABAN 2.5 MG TABLET PO ×2 (09:07→17:04)
[2023-05-27] MEDS: DEXTROSE 5% 1,000 ML 1,000 ML 70 ML IV CONT (09:29)
[2023-05-27] MEDS: KCL 20 MEQ/SW 100 ML 100 ML 50 MEQ IVPB (10:04)
--- NOTE | 2023-05-27 11:22 | PC.NURSE ---
Patient had not voided in 15 hours. Per MANAGING PRINCIPAL, sports writer scanned bladder and discovered retention. 16 fr regalado catheter placed and 625 ml dark brown urine obtained. Patient tolerated placement well.
--- NOTE | 2023-05-27 11:36 | PM.IMPN ---
Progress Note: A&P Assessment and Plan (1) Acute kidney injury: Code(s): N17.9 - Acute kidney failure, unspecified Status: Acute (2) Cystitis: Code(s): N30.90 - Cystitis, unspecified without hematuria Status: Acute (3) Pneumonia: Qualifiers: Laterality: right Lung location: lower lobe of lung Pneumonia type: due to unspecified organism Qualified Code(s): J18.9 - Pneumonia, unspecified organism Code(s): J18.9 - Pneumonia, unspecified organism Status: Acute (4) Dehydration: Code(s): E86.0 - Dehydration Status: Acute (5) Failure to thrive: Status: Acute Plan A/P 1. UTI-patient remains on ceftriaxone and urine culture is pending.? Will continue with ceftriaxone and await culture and sensitivities. Patient had very little output throughout the night, a bladder scan was performed this morning, and a Scherer catheter was placed with quick return of dark brown urine. 2. Pneumonia-per patient family patient did not have any signs or symptoms of aspiration. Patient's chest x-ray does appear to have a right lower lobe infiltrate.? Patient will continue on azithromycin and ceftriaxone.? Patient is not requiring any supplemental oxygen and her saturations have been 100% on room air.? Will monitor patient closely for any signs or symptoms of aspiration. 3. Dehydration/KATHERINE-patient continues to have very poor oral intake. Patient was on LR at 75 mL throughout the night and her sodium did increase to 148. Patient will be transitioned to D5W at 70 mL/hour. Will continue to monitor laboratories closely.? It does appear that patient's baseline kidney function is creatinine between 0.7 to 0.9.? Patient's CBC did appear to show hemoconcentration which has significantly improved today.? Patient had very little output throughout the night and a Scherer catheter was placed thus morning with quick return of 600 mL of dark brown urine. 4. Failure to thrive-patient has not been eating well over the last 2 months and her intake has typically been Ensure or [place] instant breakfast.? Did discuss code status with patient's daughter and at this time patient is to remain a full code, but she is wanting to talk consult with hospice today. VTE:? Patient is on Eliquis 2.5 mg b.i.d. at home this will be used for her VTE prophylaxis. Dispo:? Patient will be changed to inpatient status. Code Status:? Full code Subjective Date/time seen: 05/27/23 11:36 Interval history: Patient is resting in bed and will arouse to verbal stimulation. Patient will say yes and no at times, but her speech is very slow. Patient states no when she is asked if she is in pain. Patient did not have a significant output throughout the night and after bladder scanning a Scherer catheter was inserted with a quick return of 600 mL of dark cloudy urine. Review of Systems Review of Systems: Unable to obtain a full review of systems secondary to patient's clinical condition and being unable to answer questions. Exam Narrative: Constitutional:? Patient is an 87-year-old frail, cachectic appearing female who is in no acute distress.? Patient can speak, but does not answer all questions appropriately. Patient's speech is slow, and patient will answer yes or no to simple questions. HEENT:? Moist mucous membranes.? No scleral icterus.? No lymphadenopathy. Neck:? No carotid bruits noted no JVD noted Lungs:? Lung sounds are decreased to auscultation bilaterally.? No accessory muscle use.? No rhonchi, rales, or wheezes noted. Cardiovascular:? Apical pulse is irregularly irregular, S1 with variable S2, no S3 or S4.? Patient has a 3/6 systolic murmur noted. Abdomen:? Soft, flat, and nontender.? No palpable masses. Extremities:? No edema.? Nontender. Skin:? Patient does have a dressing noted to her right acosta area from wound.? Patient has multiple ecchymotic areas to upper and lower extremities. Psychiatric:? Cooperative ? O
[2023-05-27] MEDS: AZITHROMYCIN 500 MG/NS 250 ML 500 MG/250 ML BAG 250 MG IVPB (13:07)
[2023-05-27] MEDS: ACETAMINOPHEN 325 MG TABLET 650 MG PO (13:54)
[2023-05-27 16:00] VITALS: BP 129/57; PULSE 80; RESP 16; TEMP 36.4; O2SAT 95
[2023-05-27] MEDS: MIRTAZAPINE 15 MG TABLET PO (20:02)
[2023-05-27] MEDS: PRAVASTATIN SODIUM 20 MG TABLET 40 MG PO (20:02)
[2023-05-28] VITALS: BP 120/59; PULSE 80; RESP 18; TEMP 36.3; O2SAT 100
[2023-05-28] MEDS: DEXTROSE 5% 1,000 ML 1,000 ML 70 ML IV CONT (02:25)
[2023-05-28 05:42] LABS: Basophils Absolute Auto 0.03 K/mm3 (0.00-0.10); Basophils Percent Auto 0.7 % (0.0-1.0); Eosinophils Absolute Auto 0.03 K/mm3 (0.02-0.50); Eosinophils Percent Auto 0.7 % (1.0-6.0); Hematocrit 40.1 % (35.0-42.0); Hemoglobin 13.3 g/dL (11.7-13.8); Immature Granulocyte Absolute 0.04 K/mm3 (0.00-0.00); Immature Granulocyte Percent A 0.9 % (0.0-0.0); Immature Platelet Fraction Pct 3.7 % (1.0-7.0); Lymphocytes Absolute Auto 1.15 K/mm3 (1.10-4.50); Lymphocytes Percent Auto 25.4 % (18.0-42.0); Mean Corpuscular HGB Conc 33.2 g/dL (32.0-36.0); Mean Corpuscular Hemoglobin 29.8 pg (27.0-31.0); Mean Corpuscular Volume 89.9 fL (78.0-102.0); Mean Platelet Volume 11.5 fl (9.2-11.8); Monocytes Absolute Auto 0.35 K/mm3 (0.10-0.90); Monocytes Percent Auto 7.7 % (2.0-11.0); Neutrophils Absolute Auto 2.9 K/mm3 (1.7-7.2); Neutrophils Percent Auto 64.6 % (50.0-70.0); Platelet Count Result 117 K/mm3 (150-420); Red Blood Count 4.46 M/mm3 (4.20-5.40); Red Cell Distribution Width 18.4 % (11.6-14.4); White Blood Count 4.5 K/mm3 (4.8-10.8)
[2023-05-28 05:51] LABS: Anion Gap 7 mmol/L (8-16); Blood Urea Nitrogen 31 mg/dL (7-18); Calcium 8.4 mg/dL (8.5-10.1); Carbon Dioxide 24 mmol/L (21-32); Chloride 111 mmol/L (98-108); Estimated CRCL calculation 18 ml/min; Estimated Glomerular Filt Rate 38; Glucose 228 mg/dL (70-99); Osmolality Calculated 307 mOsm/kg (285-295); Potassium 3.7 mmol/L (3.5-5.1); Sodium 142 mmol/L (136-145)
[2023-05-28] MEDS: LEVOTHYROXINE SODIUM 100 MCG TABLET PO (06:03)
[2023-05-28 08:00] VITALS: BP 120/74; PULSE 80; RESP 18; TEMP 35.7; O2SAT 99
[2023-05-28] MEDS: SALINE LOCK FLUSH 10 ML IV PUSH ×2 (09:05→09:06)
[2023-05-28] MEDS: CHOLECALCIFEROL 1,000 UNITS TABLET 2000 UNITS PO (09:06)
[2023-05-28] MEDS: FENOFIBRATE NANOCRYSTALLIZED 145 MG TABLET PO (09:07)
[2023-05-28] MEDS: APIXABAN 2.5 MG TABLET PO ×2 (09:07→17:11)
[2023-05-28] MEDS: SENNOSIDES 8.6 MG TABLET 17.2 MG PO (09:07)
[2023-05-28] MEDS: polyethylene glycoL 3350 17 GM POWD.PACK PO (09:08)
--- NOTE | 2023-05-28 10:37 | PC.NURSE ---
Patient family repositioned patient to L side. Patient awake, alert and comfortable at this time. IV ABT currently running with 50ML/HR D5.
[2023-05-28] MEDS: AZITHROMYCIN 500 MG/NS 250 ML 500 MG/250 ML BAG 250 MG IVPB (11:39)
--- NOTE | 2023-05-28 13:43 | PM.IMPN ---
Progress Note: A&P Assessment and Plan (1) Acute kidney injury: Code(s): N17.9 - Acute kidney failure, unspecified Status: Acute (2) Cystitis: Code(s): N30.90 - Cystitis, unspecified without hematuria Status: Acute (3) Pneumonia: Qualifiers: Laterality: right Lung location: lower lobe of lung Pneumonia type: due to unspecified organism Qualified Code(s): J18.9 - Pneumonia, unspecified organism Code(s): J18.9 - Pneumonia, unspecified organism Status: Acute (4) Dehydration: Code(s): E86.0 - Dehydration Status: Acute (5) Failure to thrive: Status: Acute Plan A/P 1. UTI- Urine culture shows no growth. Urinalysis did show greater than 175 RBCs and many calcium oxalate crystals. Patient does have a known history of nephrolithiasis. Patient's family is not wanting any invasion of workup for any further procedures performed on patient at this time for possible renal calculi due to the fact that she will be placed on hospice tomorrow. 2. Pneumonia-per patient family patient did not have any signs or symptoms of aspiration. Patient's chest x-ray does appear to have a right lower lobe infiltrate.? Patient will continue on azithromycin and ceftriaxone.? Patient continues to not require any supplemental oxygen and her saturations have been 99-100% on room air. Patient has remained afebrile.? Will monitor patient closely for any signs or symptoms of aspiration. will continue antibiotics through tomorrow at discharge. 3. Dehydration/KATHERINE-patient continues to have very poor oral intake. Patient was transition to D5W at 70 mL/hr yesterday and her sodium has significantly improved. 4. Failure to thrive-patient has not been eating well over the last 2 months and her intake has typically been Ensure or [place] instant breakfast.? [facility] has been in the facility and spoke with patient family on the would like patient to be admitted to hospice tomorrow. Patient will be discharged to hospice tomorrow VTE:? Patient is on Eliquis 2.5 mg b.i.d. at home this will be used for her VTE prophylaxis. Dispo:? patient will remain inpatient and will be discharged to hospice tomorrow. Code Status:? Full code Subjective Date/time seen: 08/01/23 1100 Interval history: Patient resting in bed and will open eyes to verbal stimulation. Patient is smiling and continues to answer yes or no questions. Patient's daughters are at bedside states that they feel there mother looks much improved today. Review of Systems Review of Systems: Unable to obtain a full review of systems secondary to patient's clinical condition and being unable to answer questions. Exam Narrative: Constitutional:? Patient is an 87-year-old frail, cachectic appearing female who is in no acute distress.? Patient can speak, but does not answer all questions appropriately. Patient's speech is slow, and patient will answer yes or no to simple questions. HEENT:? Moist mucous membranes.? No scleral icterus.? No lymphadenopathy. Neck:? No carotid bruits noted no JVD noted Lungs:? Lung sounds are decreased to auscultation bilaterally.? No accessory muscle use.? No rhonchi, rales, or wheezes noted. Cardiovascular:? Apical pulse is irregularly irregular, S1 with variable S2, no S3 or S4.? Patient has a 3/6 systolic murmur noted. Abdomen:? Soft, flat, and nontender.? No palpable masses. Extremities:? No edema.? Nontender. Skin:? Patient does have a dressing noted to her right acosta area from wound.? Patient has multiple ecchymotic areas to upper and lower extremities. Psychiatric:? Cooperative ? Objective Data Vital Signs Vital Signs: Vital Signs - 24 hr 05/27/23 16:00 05/28/23 00:00 05/28/23 08:00 Temperature 36.4 C L 36.3 C L 35.7 C L Pulse Rate 80 80 80 Respiratory Rate 16 18 18 Blood Pressure 129/57 L 120/59 L 120/74 Pulse Oximetry 95 100 99 Oxygen Delivery Room Air Room Air Room Air
[2023-05-28] MEDS: ACETAMINOPHEN 325 MG TABLET 650 MG PO (13:54)
--- NOTE | 2023-05-28 13:54 | PC.NURSE ---
Pillow Filler administered tylenol 650mg for generalized pain post repositioning and changing patient.
[2023-05-28 16:00] VITALS: BP 104/54; PULSE 80; RESP 16; TEMP 36.2; O2SAT 100
--- NOTE | 2023-05-28 18:09 | PC.NURSE ---
Patient code status changed to modified code, medications only. Patient will be starting hospice tomorrow.
[2023-05-28 20:00] VITALS: PULSE 80; RESP 16; O2SAT 100
[2023-05-28] MEDS: DEXTROSE 5% 1,000 ML 1,000 ML 50 ML IV CONT (20:07)
[2023-05-28] MEDS: MIRTAZAPINE 15 MG TABLET PO (20:19)
[2023-05-28] MEDS: PRAVASTATIN SODIUM 20 MG TABLET 40 MG PO (20:20)
[2023-05-29] VITALS: BP 84/57; PULSE 79; RESP 16; TEMP 36.2; O2SAT 96
[2023-05-29 05:29] LABS: Basophils Absolute Auto 0.04 K/mm3 (0.00-0.10); Basophils Percent Auto 0.9 % (0.0-1.0); Eosinophils Absolute Auto 0.04 K/mm3 (0.02-0.50); Eosinophils Percent Auto 0.9 % (1.0-6.0); Hematocrit 44.9 % (35.0-42.0); Hemoglobin 14.3 g/dL (11.7-13.8); Immature Granulocyte Absolute 0.02 K/mm3 (0.00-0.00); Immature Granulocyte Percent A 0.5 % (0.0-0.0); Lymphocytes Absolute Auto 1.08 K/mm3 (1.10-4.50); Lymphocytes Percent Auto 25.1 % (18.0-42.0); Mean Corpuscular HGB Conc 31.8 g/dL (32.0-36.0); Mean Corpuscular Hemoglobin 29.7 pg (27.0-31.0); Mean Corpuscular Volume 93.2 fL (78.0-102.0); Mean Platelet Volume 11.3 fl (9.2-11.8); Monocytes Absolute Auto 0.35 K/mm3 (0.10-0.90); Monocytes Percent Auto 8.1 % (2.0-11.0); Neutrophils Absolute Auto 2.8 K/mm3 (1.7-7.2); Neutrophils Percent Auto 64.5 % (50.0-70.0); Platelet Count Result 115 K/mm3 (150-420); Red Blood Count 4.82 M/mm3 (4.20-5.40); Red Cell Distribution Width 18.5 % (11.6-14.4); White Blood Count 4.3 K/mm3 (4.8-10.8)
[2023-05-29 05:43] LABS: Anion Gap 9 mmol/L (8-16); Blood Urea Nitrogen 29 mg/dL (7-18); Calcium 8.3 mg/dL (8.5-10.1); Carbon Dioxide 19 mmol/L (21-32); Chloride 107 mmol/L (98-108); Estimated CRCL calculation 19 ml/min; Estimated Glomerular Filt Rate 41; Glucose 196 mg/dL (70-99); Osmolality Calculated 290 mOsm/kg (285-295); Potassium 3.7 mmol/L (3.5-5.1); Sodium 135 mmol/L (136-145)
[2023-05-29] MEDS: LEVOTHYROXINE SODIUM 100 MCG TABLET PO (06:30)
[2023-05-29 08:00] VITALS: BP 96/53; PULSE 79; RESP 16; TEMP 35.9; O2SAT 96
[2023-05-29] MEDS: APIXABAN 2.5 MG TABLET PO (08:17)
[2023-05-29] MEDS: CHOLECALCIFEROL 1,000 UNITS TABLET 2000 UNITS PO (08:17)
--- NOTE | 2023-05-29 10:27 | PM.DS ---
DS: Admitting Diagnosis Discharge Date 05/29/2023 Admitting Diagnosis Altered mental status DS: Discharge Diagnosis Discharge Diagnosis Plan See Hospital Course DS: Summary Hospital Course Reason for hospitalization: Altered mental status and failure to thrive Hospital Course: Ms. Tovar is an 87-year-old female who presented to the emergency room with altered mental status. Patient's daughter had noted teres prior to admission that patient was weaker than usual and was not making sense when she was speaking. Patient's daughter thought that time the patient may have had a urinary tract infection and monitor the patient closely. Patient's daughter states that the patient continued to become weaker and more confused and called the patient's primary care provider for possible treatment of urinary tract infection and patient's daughter was told to bring the patient to emergency room. Upon evaluation emergency room patient was noted to have an elevation in her hemoglobin and hematocrit as well as her BUN and creatinine in when compared to previous laboratories. Patient's urinalysis did appear to show a urinary tract infection and chest x-ray showed right mid and lower lobe infiltrate. Patient was then started on room ceftriaxone and azithromycin. Urine culture did return showing no growth. Patient was continued on room ceftriaxone and azithromycin for her right lower lobe infiltrate. After much discussion with patient's family regarding patient's failure to thrive and diagnosis of pneumonia and dehydration the family thought that it would be best that patient be placed on hospice and kept comfortable at home. Patient was hydrated throughout hospitalization and her sodium level, hemoglobin, hematocrit, and renal function had returned to baseline. After meeting with hospice the patient's family move forward with hospice plan and patient is ready for discharge today. Patient has all durable medical equipment needed at home, and hospice is to evaluate patient when patient arrives. At this point time patient is ready for discharge in stable condition. Status at Discharge Cognitive/behavioral status at discharge: Patient's cognitive status at discharge remains at baseline with occasional confusion. Functional status at discharge: wheelchair bound Overall status at discharge: patient is back to baseline Time Spent with Patient Time attestation: Total time spent providing and/or coordinating discharge services: 45 Exam Narrative: Constitutional:? Patient is an 87-year-old frail, cachectic appearing female who is in no acute distress.? Patient can speak, but does not answer all questions appropriately. Patient will answer yes and no questions with single words. HEENT:? Moist mucous membranes.? No scleral icterus.? No lymphadenopathy. Neck:? No carotid bruits noted no JVD noted Lungs:? Lung sounds are decreased to auscultation bilaterally.? No accessory muscle use.? No rhonchi, rales, or wheezes noted. Cardiovascular:? Apical pulse is irregularly irregular, S1 with variable S2, no S3 or S4.? Patient has a 3/6 systolic murmur noted. Abdomen:? Soft, flat, and nontender.? No palpable masses. Extremities:? No edema.? Nontender. Skin:? Patient does have a dressing noted to her right acosta area from wound.? Patient has multiple ecchymotic areas to upper and lower extremities. Psychiatric:? Cooperative, appropriate mood, and affect DS: Data Data Completed and Pending Labs on day of discharge: Labs from last 24 hours 05/29/23 04:59 WBC 4.3 L RBC 4.82 Hgb 14.3 H Hct 44.9 H MCV 93.2 MCH 29.7 MCHC 31.8 L RDW 18.5 H Plt Count 115 L MPV 11.3 Immature Gran % (Auto) 0.5 H Neut % (Auto) 64.5 Lymph % (Auto) 25.1 [place] % (Auto) 8.1 Eos % (Auto) 0.9 L Baso % (Auto) 0.9 Lymph # (Auto) 1.08 L [place] # (Auto) 0.35 Eos # (Auto) 0.04 Baso # (Auto) 0.04 Abs Immat Gran (auto) 0.02 H Absolute Neuts (auto) 2.8 Absolute Nucleated RBC 0.
--- NOTE | 2023-05-29 11:36 | PC.NURSE ---
patient discharged with daughter and son. Daughter lifted patient into wheelchair and into private car. central line removed intact. instructions for catheter care and IV site given to daughter. [facility] paperwork given to daughter
--- NOTE | 2023-05-30 10:07 | PC.NURSE ---
The daughter states they received and understood the discharge instructions. She also states the nurses were very empathetic and took very good care of her and us .
== END 2023-05-29 11:30 | disposition hospice, home (50) | DRG 682 ==
LOC: CHSED 10:24 → CHS2ND 11:46
PROVIDERS: Nurse Practitioner Adult Health; Admitting Provider Internal Medicine; Emergency Provider Emergency Medicine; PCP Family Medicine; Visit Provider Internal Medicine
DX: N17.9 Acute kidney failure, unspecified (principal); J18.9 Pneumonia, unspecified organism; I13.0 Hypertensive heart and chronic kidney disease with heart failure and stage 1 through stage 4 chronic kidney disease, or unspecified chronic kidney disease; I48.20 Chronic atrial fibrillation, unspecified; I50.22 Chronic systolic (congestive) heart failure; Z68.1 Body mass index [BMI] 19.9 or less, adult; R64 Cachexia; N30.90 Cystitis, unspecified without hematuria; N18.30 Chronic kidney disease, stage 3 unspecified; E11.22 Type 2 diabetes mellitus with diabetic chronic kidney disease; E86.0 Dehydration; E03.9 Hypothyroidism, unspecified; E78.5 Hyperlipidemia, unspecified; R62.7 Adult failure to thrive; B39.9 Histoplasmosis, unspecified; I25.2 Old myocardial infarction; Z95.810 Presence of automatic (implantable) cardiac defibrillator; Z51.5 Encounter for palliative care
CPT/HCPCS: 36415; 71045; 80048; 80053; 81001; 82010; 82550; 83735; 83880; 84443; 84484; 85025; 85055; 87086; 93005; 96361; 96365; 96367; 97161; 99285; A9270; G0378; J0456; J0696; J3480; J7040; J7070; J7120